=== PATIENT | male | born 1970 | race African-American/Black ===

== ENCOUNTER 2018-05-09 11:35 | Inpatient (IN) | payer MEDICAID ==
[~2018-05-09] VITALS: Ht 188 cm; Wt 88.0 kg
[~2018-05-09 11:35] MED LIST: AMMO1SOL2 MC; ATOR40TA70 MT; GABA-531 MT; INSLIS SUBCUT; INSU100I24 SQ; KETO15CR2 TP; METF-416 MT; SITA100T11 MT; ZET10 MT
[2018-05-09] MEDS ORDERED: ONDANSETRON HCL 4MG/2ML INJ IV STA (12:22)
[2018-05-09] MEDS ORDERED: MORPHINE SULFATE 4 MG/ML CPJ (NOT FOR IM USE) IV STA (12:22)
[2018-05-09] MEDS ORDERED: VANCOMYCIN 1 G PREMIX 200 ML IV ONE (12:30)
[2018-05-09] MEDS ORDERED: SODIUM CHLORIDE 0.9% 1000ML BAG (SEPSIS BOLUS) IV ONE (12:30)
[2018-05-09] MEDS ORDERED: PIPERACILLIN/TAZ 3.375G PREMIX 50 ML IV ONE (12:30)
[2018-05-09 13:19] LABS: BASOPHILS % 0.4 % (0.0-2.0); EOSINOPHILS % 0.9 % (0.0-5.0); HEMATOCRIT. 23.5 % (42.0-52.0); HEMOGLOBIN. 7.5 g/dL (14.0-18.0); LYMPHOCYTES % 7.1 % (20.0-50.0); MEAN CORPUSCULAR HEMOGLOBIN 27.4 pg (28.0-32.0); MEAN CORPUSCULAR VOLUME 85.3 fL (80.0-94.0); MEAN PLATELET VOLUME 8.8 fl (7.4-10.4); MONOCYTES % 10.9 % (2.0-8.0); NEUTROPHILS % 80.7 % (40.0-76.0); PLATELET 422 x1000/uL (130-400); RED BLOOD CELL COUNT 2.75 mill/uL (4.7-6.1); RED CELL DISTRIBUTION WIDTH 18.7 % (11.6-14.6)
[2018-05-09 13:24] LABS: CHLORIDE 105 mEq/L (98-107)
[2018-05-09 13:31] LABS: INR 1.5; PARTIAL THROMBOPLASTIN TIME 33.2 sec (23.4-31.0); PROTHROMBIN TIME 14.6 sec (9.1-11.1)
[2018-05-09 13:33] LABS: PLATELET ESTIMATE SLIGHTLY INCREASED
[2018-05-09] MEDS ORDERED: IOHEXOL-350 100 ML BOTTLE ONE (15:26)
[2018-05-09] MEDS ORDERED: MORPHINE SULFATE 10 MG/ML CPJ IV NR (16:00)
[2018-05-09 16:09] LABS: CLARITY URINE CLEAR (CLEAR); COLOR URINE YELLOW (YELLOW); KETONES URINE NEGATIVE (NEGATIVE); LEUKOCYTE ESTERASE URINE NEGATIVE (NEGATIVE); NITRITE URINE NEGATIVE (NEGATIVE); OCCULT BLOOD URINE 1+ (NEGATIVE); PROTEIN URINE 3+ (NEGATIVE); SPECIFIC GRAVITY URINE 1.019 (1.005-1.030)
[2018-05-09] MEDS ORDERED: ENOXAPARIN 100MG/ML SYR SUBCUT ONE (16:15)
[2018-05-09] MEDS ORDERED: ONDANSETRON HCL 4MG/2ML INJ IV PRN (17:30)
[2018-05-09 18:50] LABS: TOTAL IRON BINDING CAPACITY 224 ug/dL (250-450)
[2018-05-09] MEDS: CLONIDINE 0.1MG TABLET PO PRN (19:24)
[2018-05-09] MEDS ORDERED: AMLODIPINE 5MG TABLET PO NR (19:25)
[2018-05-09 20:10] VITALS: BP 156/105
[2018-05-09 20:15] LABS: *COCAINE SCREEN URINE NEGATIVE (NEGATIVE)
[2018-05-09 20:16] LABS: *AMPHETAMINES SCREEN URINE NEGATIVE (NEGATIVE); *BARBITURATES SCREEN URINE NEGATIVE (NEGATIVE); CANNABINOID URINE SCREEN NEGATIVE (NEGATIVE); METHADONE URINE SCREEN NEGATIVE (NEGATIVE); OPIATES URINE SCREEN NEGATIVE (NEGATIVE); PHENCYCLIDINE URINE SCREEN NEGATIVE (NEGATIVE)
[2018-05-09 20:17] LABS: *BENZODIAZEPINES SCREEN URINE NEGATIVE (NEGATIVE)
[2018-05-09] MEDS: INSULIN LISPRO 100 UNITS/ML SUBCUT SCH (21:00)
[2018-05-09] MEDS ORDERED: DEXTROSE 50% WATER 50ML SYRINGE IV PRN (21:00)
[2018-05-09] MEDS: ATORVASTATIN CALCIUM 20MG TABLET PO SCH (21:27)
[2018-05-09] MEDS: BLOOD SUGAR DIAGNOSTIC STRIP TEST SCH (21:27)
[2018-05-09 21:38] VITALS: BP 156/105
[2018-05-09] MEDS ORDERED: VANCOMYCIN 750 MG PREMIX 150 ML IV SCH (22:00)
[2018-05-09] MEDS: VANCOMYCIN 750 MG PREMIX 150 ML IV SCH (22:50)
[2018-05-10] VITALS (11 sets, daily range): BP systolic 138–173; BP diastolic 89–109
[2018-05-10] MEDS: PIPERACILLIN/TAZ 3.375G PREMIX 50 ML IV SCH ×4 (00:39→17:33)
[2018-05-10] MEDS: CLONIDINE 0.1MG TABLET PO PRN (05:06)
[2018-05-10] MEDS: VANCOMYCIN 750 MG PREMIX 150 ML IV SCH (06:05)
[2018-05-10] MEDS: BLOOD SUGAR DIAGNOSTIC STRIP TEST SCH ×4 (06:05→21:31)
[2018-05-10] MEDS: INSULIN LISPRO 100 UNITS/ML SUBCUT SCH ×4 (06:44→21:31)
[2018-05-10 07:05] LABS: BASOPHILS % 0.4 % (0.0-2.0); EOSINOPHILS % 1.3 % (0.0-5.0); HEMATOCRIT. 21.7 % (42.0-52.0); LYMPHOCYTES % 10.1 % (20.0-50.0); MEAN CORPUSCULAR HEMOGLOBIN 27.4 pg (28.0-32.0); MEAN CORPUSCULAR VOLUME 85.2 fL (80.0-94.0); MEAN PLATELET VOLUME 8.9 fl (7.4-10.4); NEUTROPHILS % 78.2 % (40.0-76.0); PLATELET 394 x1000/uL (130-400); RED BLOOD CELL COUNT 2.55 mill/uL (4.7-6.1); RED CELL DISTRIBUTION WIDTH 18.7 % (11.6-14.6)
[2018-05-10 07:53] LABS: CHLORIDE 105 mEq/L (98-107)
[2018-05-10] MEDS: AMLODIPINE 5MG TABLET PO SCH ×2 (09:20→21:30)
[2018-05-10] MEDS ORDERED: SODIUM CHLORIDE 0.45% 1,000 ML IV SCH (11:15)
[2018-05-10] MEDS: FERROUS SULFATE 325MG TABLET PO SCH ×2 (13:23→17:32)
[2018-05-10] MEDS: LOSARTAN POTASSIUM 100 MG TABLET PO SCH (13:23)
[2018-05-10] MEDS: DOCUSATE SODIUM 250MG CAPSULE PO SCH (13:23)
[2018-05-10 16:34] LABS: HEMATOCRIT 25.3 % (42.0-52.0); HEMOGLOBIN 8.2 g/dL (14.0-18.0)
[2018-05-10] MEDS: VANCOMYCIN 1250MG in DEXTROSE 5% WATER 250ML IV SCH (18:15)
[2018-05-10] MEDS: ATORVASTATIN CALCIUM 20MG TABLET PO SCH (21:30)
[2018-05-11] VITALS: BP 161/97
[2018-05-11] MEDS: PIPERACILLIN/TAZ 3.375G PREMIX 50 ML IV SCH ×4 (00:05→18:21)
[2018-05-11] MEDS: CLONIDINE 0.1MG TABLET PO PRN (00:10)
[2018-05-11] MEDS: HYDROMORPHONE HCL/PF 2MG/ML CPJ IV PRN ×2 (00:39→21:27)
[2018-05-11 04:00] VITALS: BP 116/90
[2018-05-11] MEDS: FERROUS SULFATE 325MG TABLET PO SCH ×2 (06:25→11:53)
[2018-05-11] MEDS: VANCOMYCIN 1250MG in DEXTROSE 5% WATER 250ML IV SCH (06:25)
[2018-05-11] MEDS: BLOOD SUGAR DIAGNOSTIC STRIP TEST SCH ×4 (06:25→21:35)
[2018-05-11] MEDS: INSULIN LISPRO 100 UNITS/ML SUBCUT SCH ×4 (06:25→21:34)
[2018-05-11 07:05] LABS: BASOPHILS % 0.6 % (0.0-2.0); EOSINOPHILS % 3.1 % (0.0-5.0); HEMATOCRIT. 21.8 % (42.0-52.0); HEMOGLOBIN. 7.3 g/dL (14.0-18.0); LYMPHOCYTES % 13.3 % (20.0-50.0); MEAN CORPUSCULAR HEMOGLOBIN 28.6 pg (28.0-32.0); MEAN CORPUSCULAR VOLUME 84.9 fL (80.0-94.0); MEAN PLATELET VOLUME 8.7 fl (7.4-10.4); MONOCYTES % 13.1 % (2.0-8.0); NEUTROPHILS % 69.9 % (40.0-76.0); PLATELET 428 x1000/uL (130-400); RED BLOOD CELL COUNT 2.57 mill/uL (4.7-6.1); RED CELL DISTRIBUTION WIDTH 18.3 % (11.6-14.6)
[2018-05-11 08:00] VITALS: BP 124/88
[2018-05-11] MEDS: DOCUSATE SODIUM 250MG CAPSULE PO SCH (09:39)
[2018-05-11] MEDS: LOSARTAN POTASSIUM 100 MG TABLET PO SCH (09:39)
[2018-05-11] MEDS: AMLODIPINE 5MG TABLET PO SCH ×2 (09:39→21:11)
[2018-05-11 12:00] VITALS: BP 132/90
[2018-05-11] MEDS: HYDROCODONE/ACETAMINOPHEN 5/325MG TABLET PO PRN (14:22)
[2018-05-11 16:00] VITALS: BP 140/91
[2018-05-11 20:00] VITALS: BP 142/91
[2018-05-11] MEDS: ATORVASTATIN CALCIUM 20MG TABLET PO SCH (21:11)
[2018-05-11 23:42] LABS: INR 1.5; PROTHROMBIN TIME 15.1 sec (9.1-11.1)
[2018-05-12] VITALS (7 sets, daily range): BP systolic 130–159; BP diastolic 83–94
[2018-05-12] MEDS: PIPERACILLIN/TAZ 3.375G PREMIX 50 ML IV SCH ×4 (00:38→19:01)
[2018-05-12] MEDS: INSULIN LISPRO 100 UNITS/ML SUBCUT SCH ×4 (07:15→21:00)
[2018-05-12] MEDS: BLOOD SUGAR DIAGNOSTIC STRIP TEST SCH ×4 (07:36→20:55)
[2018-05-12 07:44] LABS: BASOPHILS % 0.4 % (0.0-2.0); EOSINOPHILS % 3.1 % (0.0-5.0); HEMATOCRIT. 22.5 % (42.0-52.0); HEMOGLOBIN. 7.4 g/dL (14.0-18.0); LYMPHOCYTES % 10.3 % (20.0-50.0); MEAN CORPUSCULAR HEMOGLOBIN 27.7 pg (28.0-32.0); MEAN CORPUSCULAR VOLUME 84.4 fL (80.0-94.0); MEAN PLATELET VOLUME 8.8 fl (7.4-10.4); MONOCYTES % 9.7 % (2.0-8.0); NEUTROPHILS % 76.5 % (40.0-76.0); PLATELET 434 x1000/uL (130-400); RED BLOOD CELL COUNT 2.67 mill/uL (4.7-6.1); RED CELL DISTRIBUTION WIDTH 18.5 % (11.6-14.6)
[2018-05-12] MEDS: DOCUSATE SODIUM 250MG CAPSULE PO SCH (09:00)
[2018-05-12] MEDS: AMLODIPINE 5MG TABLET PO SCH ×2 (09:35→20:55)
[2018-05-12] MEDS: HYDROMORPHONE HCL/PF 2MG/ML CPJ IV PRN (09:36)
[2018-05-12] MEDS: HYDRALAZINE HCL 50MG TABLET PO SCH ×2 (15:00→20:55)
[2018-05-12] MEDS: HYDROCODONE/ACETAMINOPHEN 5/325MG TABLET PO PRN (18:40)
[2018-05-12] MEDS: ATORVASTATIN CALCIUM 20MG TABLET PO SCH (20:55)
[2018-05-12 21:37] LABS: HEPATITIS B SURFACE ANTIGEN NEGATIVE
[2018-05-12 22:07] LABS: HEPATITIS A AB IGM NEGATIVE (NEGATIVE)
[2018-05-13] VITALS: BP 147/92
[2018-05-13] MEDS: PIPERACILLIN/TAZ 3.375G PREMIX 50 ML IV SCH ×4 (01:04→18:40)
[2018-05-13] MEDS: HYDROMORPHONE HCL/PF 2MG/ML CPJ IV PRN ×3 (01:52→18:47)
[2018-05-13 04:00] VITALS: BP 153/104
[2018-05-13] MEDS: CLONIDINE 0.1MG TABLET PO PRN (04:08)
[2018-05-13] MEDS: HYDRALAZINE HCL 50MG TABLET PO SCH ×3 (06:27→22:13)
[2018-05-13] MEDS: BLOOD SUGAR DIAGNOSTIC STRIP TEST SCH ×4 (06:27→20:40)
[2018-05-13] MEDS: INSULIN LISPRO 100 UNITS/ML SUBCUT SCH ×4 (06:45→20:40)
[2018-05-13 08:00] VITALS: BP 132/90
[2018-05-13] MEDS: DOCUSATE SODIUM 250MG CAPSULE PO SCH ×2 (09:00→09:09)
[2018-05-13] MEDS: AMLODIPINE 5MG TABLET PO SCH ×2 (09:09→20:49)
[2018-05-13 11:54] LABS: HEMATOCRIT. 22.7 % (42.0-52.0); HEMOGLOBIN. 7.4 g/dL (14.0-18.0); MEAN CORPUSCULAR HEMOGLOBIN 27.9 pg (28.0-32.0); MEAN CORPUSCULAR VOLUME 86.1 fL (80.0-94.0); MEAN PLATELET VOLUME 8.7 fl (7.4-10.4); PLATELET 451 x1000/uL (130-400); RED BLOOD CELL COUNT 2.64 mill/uL (4.7-6.1); RED CELL DISTRIBUTION WIDTH 18.6 % (11.6-14.6)
[2018-05-13 12:00] VITALS: BP 136/85
[2018-05-13 12:15] LABS: PHOSPHORUS 6.2 mg/dL (2.5-4.9)
[2018-05-13 13:39] LABS: BG BASE EXCESS -6.2 mmol/L (-2.0-2.0); BG CARBOXYHEMOGLOBIN 0.9 % (0.5-1.5); BG DEOXYHEMOGLOBIN 3.4 % (0.0-5.0); BG FRACTION INSPIRED OXYGEN 21; BG HCO3 ACT 17.6 mmol/L (22.0-26.0); BG OXYGEN SATURATION 96.6 % (92.0-98.5); BG OXYHEMOGLOBIN 95.7 % (94.0-97.0); BG PCO2 28.1 mmHg (35.0-45.0); BG PH 7.414 (7.350-7.450); BG PO2 94.3 mmHg (75.0-100.0); BG SAMPLE SITE LEFT RADIAL; BG TOTAL HEMOGLOBIN 8.2 g/dL (12.0-18.0); BG VENT MODE ROOM AIR
[2018-05-13] MEDS ORDERED: MAGNESIUM 2 G PREMIX 50 ML IV NR (14:30)
[2018-05-13] MEDS: CITRIC ACID/SODIUM CITRATE SOLN 30ML UDC PO SCH ×2 (14:42→18:39)
[2018-05-13 15:59] LABS: PLATELET ESTIMATE SLIGHTLY INCREASED
[2018-05-13 16:00] VITALS: BP 134/98
[2018-05-13] MEDS ORDERED: PHYTONADIONE 5 MG/5ML ORAL SYRINGE PO NR (18:30)
[2018-05-13 20:00] VITALS: BP 140/91
[2018-05-13] MEDS: ATORVASTATIN CALCIUM 20MG TABLET PO SCH (20:49)
[2018-05-14] VITALS: BP 137/85
[2018-05-14] MEDS: PIPERACILLIN/TAZ 3.375G PREMIX 50 ML IV SCH ×2 (00:13→05:29)
[2018-05-14] MEDS: HYDROMORPHONE HCL/PF 2MG/ML CPJ IV PRN ×3 (01:13→15:43)
[2018-05-14 04:00] VITALS: BP 132/88
[2018-05-14] MEDS: HYDRALAZINE HCL 50MG TABLET PO SCH ×3 (05:30→22:14)
[2018-05-14] MEDS: BLOOD SUGAR DIAGNOSTIC STRIP TEST SCH ×4 (05:52→20:48)
[2018-05-14] MEDS: INSULIN LISPRO 100 UNITS/ML SUBCUT SCH ×4 (05:52→20:48)
[2018-05-14 08:00] VITALS: BP 159/96
[2018-05-14] MEDS: DOCUSATE SODIUM 250MG CAPSULE PO SCH (09:00)
[2018-05-14] MEDS: AMLODIPINE 5MG TABLET PO SCH ×2 (09:15→20:47)
[2018-05-14] MEDS: CITRIC ACID/SODIUM CITRATE SOLN 30ML UDC PO SCH ×4 (09:15→19:00)
[2018-05-14 09:57] LABS: BASOPHILS % 0.5 % (0.0-2.0); HEMATOCRIT. 24.3 % (42.0-52.0); LYMPHOCYTES % 8.5 % (20.0-50.0); MEAN CORPUSCULAR HEMOGLOBIN 27.9 pg (28.0-32.0); MEAN CORPUSCULAR VOLUME 84.7 fL (80.0-94.0); MEAN PLATELET VOLUME 8.6 fl (7.4-10.4); MONOCYTES % 9.2 % (2.0-8.0); NEUTROPHILS % 79.8 % (40.0-76.0); PLATELET 480 x1000/uL (130-400); RED BLOOD CELL COUNT 2.86 mill/uL (4.7-6.1); RED CELL DISTRIBUTION WIDTH 18.9 % (11.6-14.6)
[2018-05-14 12:00] VITALS: BP 147/97
[2018-05-14] MEDS: PIPERACILLIN/TAZ 2.25G PREMIX 50 ML IV SCH ×3 (13:12→23:28)
[2018-05-14 16:00] VITALS: BP 142/93
[2018-05-14 20:00] VITALS: BP 147/94
[2018-05-14] MEDS: ATORVASTATIN CALCIUM 20MG TABLET PO SCH (20:46)
[2018-05-15] VITALS (9 sets, daily range): BP systolic 143–163; BP diastolic 91–108
[2018-05-15] MEDS: HYDROMORPHONE HCL/PF 2MG/ML CPJ IV PRN ×2 (01:31→08:56)
[2018-05-15] MEDS: HYDRALAZINE HCL 50MG TABLET PO SCH ×2 (05:26→13:03)
[2018-05-15] MEDS: PIPERACILLIN/TAZ 2.25G PREMIX 50 ML IV SCH ×3 (05:26→18:43)
[2018-05-15 06:14] LABS: BASOPHILS % 0.9 % (0.0-2.0); EOSINOPHILS % 1.8 % (0.0-5.0); HEMATOCRIT. 22.3 % (42.0-52.0); HEMOGLOBIN. 7.6 g/dL (14.0-18.0); LYMPHOCYTES % 11.7 % (20.0-50.0); MEAN CORPUSCULAR HEMOGLOBIN 28.6 pg (28.0-32.0); MEAN CORPUSCULAR VOLUME 84.7 fL (80.0-94.0); MEAN PLATELET VOLUME 8.7 fl (7.4-10.4); NEUTROPHILS % 74.6 % (40.0-76.0); PLATELET 470 x1000/uL (130-400); RED BLOOD CELL COUNT 2.64 mill/uL (4.7-6.1); RED CELL DISTRIBUTION WIDTH 19.3 % (11.6-14.6)
[2018-05-15] MEDS: BLOOD SUGAR DIAGNOSTIC STRIP TEST SCH ×4 (06:20→21:34)
[2018-05-15] MEDS: INSULIN LISPRO 100 UNITS/ML SUBCUT SCH ×4 (06:21→21:34)
[2018-05-15 07:34] LABS: CHLORIDE 103 mEq/L (98-107)
[2018-05-15 07:46] LABS: PHOSPHORUS 5.8 mg/dL (2.5-4.9)
[2018-05-15] MEDS: AMLODIPINE 5MG TABLET PO SCH ×2 (08:56→21:22)
[2018-05-15] MEDS: CITRIC ACID/SODIUM CITRATE SOLN 30ML UDC PO SCH ×3 (08:56→18:17)
[2018-05-15] MEDS: DOCUSATE SODIUM 250MG CAPSULE PO SCH (08:56)
[2018-05-15] MEDS: HYDROCODONE/ACETAMINOPHEN 5/325MG TABLET PO PRN ×2 (14:53→22:11)
[2018-05-15] MEDS ORDERED: MAGNESIUM 2 G PREMIX 50 ML IV SCH (16:00)
[2018-05-15] MEDS: HYDRALAZINE HCL 100MG TABLET PO SCH (21:22)
[2018-05-15] MEDS: ATORVASTATIN CALCIUM 20MG TABLET PO SCH (21:22)
[2018-05-16] VITALS (12 sets, daily range): BP systolic 144–180; BP diastolic 90–113
[2018-05-16] MEDS: DEXT 5%/0.45% NACL 1000ML 1,000 ML IV SCH ×2 (04:38→15:45)
[2018-05-16] MEDS: HYDRALAZINE HCL 100MG TABLET PO SCH ×3 (06:00→21:11)
[2018-05-16] MEDS: PIPERACILLIN/TAZ 2.25G PREMIX 50 ML IV SCH ×4 (06:09→17:06)
[2018-05-16] MEDS: BLOOD SUGAR DIAGNOSTIC STRIP TEST SCH ×4 (06:20→21:11)
[2018-05-16 06:45] LABS: BASOPHILS % 0.5 % (0.0-2.0); EOSINOPHILS % 2.4 % (0.0-5.0); HEMOGLOBIN. 9.4 g/dL (14.0-18.0); LYMPHOCYTES % 11.1 % (20.0-50.0); MEAN CORPUSCULAR HEMOGLOBIN 28.2 pg (28.0-32.0); MEAN CORPUSCULAR VOLUME 84.5 fL (80.0-94.0); MEAN PLATELET VOLUME 8.7 fl (7.4-10.4); MONOCYTES % 10.4 % (2.0-8.0); NEUTROPHILS % 75.6 % (40.0-76.0); PLATELET 475 x1000/uL (130-400); RED BLOOD CELL COUNT 3.31 mill/uL (4.7-6.1); RED CELL DISTRIBUTION WIDTH 18.6 % (11.6-14.6)
[2018-05-16 06:52] LABS: INR 1.3; PROTHROMBIN TIME 13.4 sec (9.1-11.1)
[2018-05-16] MEDS: MORPHINE SULFATE 4 MG/ML CPJ (NOT FOR IM USE) IV PRN ×4 (06:59→22:16)
[2018-05-16] MEDS: INSULIN LISPRO 100 UNITS/ML SUBCUT SCH ×4 (07:07→21:00)
[2018-05-16 07:10] LABS: PHOSPHORUS 4.7 mg/dL (2.5-4.9)
[2018-05-16] MEDS: HYDRALAZINE 20MG/ML VIAL IV PRN (08:36)
[2018-05-16] MEDS: DOCUSATE SODIUM 250MG CAPSULE PO SCH (08:41)
[2018-05-16] MEDS: CITRIC ACID/SODIUM CITRATE SOLN 30ML UDC PO SCH ×3 (08:41→17:06)
[2018-05-16] MEDS: AMLODIPINE 5MG TABLET PO SCH ×2 (08:42→21:11)
[2018-05-16] MEDS ORDERED: MORPHINE SULFATE 4 MG/ML CPJ (NOT FOR IM USE) IV SCH (10:00)
[2018-05-16] MEDS ORDERED: VANCOMYCIN 1250MG in DEXTROSE 5% WATER 250ML IV NR (12:00)
[2018-05-16] MEDS: ATORVASTATIN CALCIUM 20MG TABLET PO SCH (21:11)
[2018-05-16] MEDS: ACETAMINOPHEN 325MG TABLET PO PRN (23:22)
[2018-05-17] VITALS (21 sets, daily range): BP systolic 126–174; BP diastolic 56–114
[2018-05-17] MEDS: PIPERACILLIN/TAZ 2.25G PREMIX 50 ML IV SCH ×4 (01:23→21:00)
[2018-05-17] MEDS: HYDRALAZINE 20MG/ML VIAL IV PRN ×2 (04:49→14:23)
[2018-05-17] MEDS: HYDRALAZINE HCL 100MG TABLET PO SCH ×3 (05:15→23:10)
[2018-05-17] MEDS: BLOOD SUGAR DIAGNOSTIC STRIP TEST SCH ×4 (06:10→21:17)
[2018-05-17] MEDS: INSULIN LISPRO 100 UNITS/ML SUBCUT SCH ×4 (06:20→21:36)
[2018-05-17 07:12] LABS: HEMATOCRIT. 28.5 % (42.0-52.0); HEMOGLOBIN. 9.3 g/dL (14.0-18.0); MEAN CORPUSCULAR HEMOGLOBIN 27.8 pg (28.0-32.0); MEAN CORPUSCULAR VOLUME 85.7 fL (80.0-94.0); RED BLOOD CELL COUNT 3.33 mill/uL (4.7-6.1); RED CELL DISTRIBUTION WIDTH 19.2 % (11.6-14.6)
[2018-05-17 07:30] LABS: PHOSPHORUS 4.2 mg/dL (2.5-4.9)
[2018-05-17] MEDS: AMLODIPINE 5MG TABLET PO SCH ×2 (09:00→21:36)
[2018-05-17] MEDS: DOCUSATE SODIUM 250MG CAPSULE PO SCH (09:00)
[2018-05-17] MEDS: CITRIC ACID/SODIUM CITRATE SOLN 30ML UDC PO SCH ×3 (09:00→17:00)
[2018-05-17] MEDS: MORPHINE SULFATE 4 MG/ML CPJ (NOT FOR IM USE) IV PRN ×2 (09:27→23:18)
[2018-05-17] MEDS: DEXT 5%/0.45% NACL 1000ML 1,000 ML IV SCH ×3 (09:28→20:49)
[2018-05-17] MEDS ORDERED: MAGNESIUM 2 G PREMIX 50 ML IV NR (10:00)
[2018-05-17 11:09] LABS: PHOSPHORUS 3.9 mg/dL (2.5-4.9)
[2018-05-17] MEDS ORDERED: NORMAL SALINE 0.9% 10 ML SYR ONE (12:02)
[2018-05-17] MEDS ORDERED: VANCOMYCIN HCL 500 MG/VIAL ONE ×2 (12:02→16:23)
[2018-05-17] MEDS ORDERED: BUPIVACAINE HCL 0.5% (5MG/ML) 50ML ONE (12:02)
[2018-05-17] MEDS ORDERED: BACITRACIN 50,000 UNITS/VIAL ONE (12:02)
[2018-05-17] MEDS ORDERED: BACITRACIN 15GM TUBE TOP ONE (12:02)
[2018-05-17 12:19] LABS: MEAN PLATELET VOLUME 8.7 fl (7.4-10.4); PLATELET 449 x1000/uL (130-400); PLATELET ESTIMATE INCREASED
[2018-05-17] MEDS ORDERED: PROPOFOL 200MG/20ML VIAL IV ONE ×2 (16:02→17:44)
[2018-05-17] MEDS ORDERED: FENTANYL CITRATE/PF 50MCG/ML 2ML VIAL ONE (16:02)
[2018-05-17] MEDS ORDERED: MIDAZOLAM HCL 2 MG/2 ML VIAL ONE (16:02)
[2018-05-17] MEDS ORDERED: DEXAMETHASONE 4MG/ML 1ML VIAL ONE (16:16)
[2018-05-17] MEDS ORDERED: ONDANSETRON HCL 4MG/2ML INJ ONE (16:16)
[2018-05-17] MEDS ORDERED: ALBUMIN HUMAN 12.5G/250ML (5%) IV ONE (17:11)
[2018-05-17] MEDS ORDERED: PIPERACILLIN/TAZ 3.375G PREMIX 50 ML IV SCH (18:00)
[2018-05-17] MEDS ORDERED: LIDOCAINE HCL 1% 20ML VIAL (Pyxis) INJ ONE (18:12)
[2018-05-17] MEDS ORDERED: ETOMIDATE 2MG/ML 10ML VIAL IV ONE (18:12)
[2018-05-17] MEDS ORDERED: LABETALOL HCL 20MG/4ML CARPUJECT IV PRN (18:30)
[2018-05-17] MEDS ORDERED: ONDANSETRON HCL 4MG/2ML INJ IV PRN (18:30)
[2018-05-17] MEDS ORDERED: MEPERIDINE HCL/PF 25MG/ML CPJ IV PRN (18:30)
[2018-05-17] MEDS: HYDROMORPHONE HCL/PF 2MG/ML CPJ IV PRN ×5 (18:35→20:15)
[2018-05-17] MEDS: PIPERACILLIN/TAZ 3.375G PREMIX 50 ML IV SCH (21:00)
[2018-05-17] MEDS: ATORVASTATIN CALCIUM 20MG TABLET PO SCH (21:36)
[2018-05-17 21:54] LABS: D-DIMER 1.67 mg/L FEU (<0.50); INR 1.4; PARTIAL THROMBOPLASTIN TIME 32.9 sec (23.4-31.0)
[2018-05-17 21:59] LABS: HEMATOCRIT. 28.1 % (42.0-52.0); HEMOGLOBIN. 9.2 g/dL (14.0-18.0); MEAN CORPUSCULAR HEMOGLOBIN 28.3 pg (28.0-32.0); MEAN CORPUSCULAR VOLUME 86.6 fL (80.0-94.0); MEAN PLATELET VOLUME 8.8 fl (7.4-10.4); PLATELET 283 x1000/uL (130-400); RED BLOOD CELL COUNT 3.25 mill/uL (4.7-6.1); RED CELL DISTRIBUTION WIDTH 17.9 % (11.6-14.6)
[2018-05-17 22:23] LABS: PLATELET ESTIMATE NORMAL
[2018-05-18] VITALS (20 sets, daily range): BP systolic 113–167; BP diastolic 70–109
[2018-05-18] MEDS: PIPERACILLIN/TAZ 3.375G PREMIX 50 ML IV SCH ×4 (03:00→21:37)
[2018-05-18] MEDS: PIPERACILLIN/TAZ 2.25G PREMIX 50 ML IV SCH (03:00)
[2018-05-18] MEDS: MORPHINE SULFATE 4 MG/ML CPJ (NOT FOR IM USE) IV PRN ×4 (03:01→21:49)
[2018-05-18 05:33] LABS: HEMATOCRIT. 25.7 % (42.0-52.0); HEMOGLOBIN. 8.4 g/dL (14.0-18.0); MEAN CORPUSCULAR HEMOGLOBIN 28.2 pg (28.0-32.0); MEAN CORPUSCULAR VOLUME 85.9 fL (80.0-94.0); MEAN PLATELET VOLUME 8.7 fl (7.4-10.4); PLATELET 260 x1000/uL (130-400); RED BLOOD CELL COUNT 2.99 mill/uL (4.7-6.1); RED CELL DISTRIBUTION WIDTH 18.1 % (11.6-14.6)
[2018-05-18 05:45] LABS: PHOSPHORUS 4.7 mg/dL (2.5-4.9)
[2018-05-18] MEDS: HYDRALAZINE HCL 100MG TABLET PO SCH ×3 (07:45→21:35)
[2018-05-18] MEDS: BLOOD SUGAR DIAGNOSTIC STRIP TEST SCH ×4 (07:50→21:40)
[2018-05-18] MEDS ORDERED: MAGNESIUM 2 G PREMIX 50 ML IV NR (09:00)
[2018-05-18] MEDS: CITRIC ACID/SODIUM CITRATE SOLN 30ML UDC PO SCH ×3 (09:03→17:32)
[2018-05-18] MEDS: DOCUSATE SODIUM 250MG CAPSULE PO SCH (09:03)
[2018-05-18] MEDS: AMLODIPINE 5MG TABLET PO SCH ×2 (09:03→21:36)
[2018-05-18] MEDS: INSULIN LISPRO 100 UNITS/ML SUBCUT SCH ×4 (09:03→21:39)
[2018-05-18 09:47] LABS: PLATELET ESTIMATE NORMAL
[2018-05-18] MEDS: HYDROCODONE/ACETAMINOPHEN 5/325MG TABLET PO PRN (09:58)
[2018-05-18] MEDS: VANCOMYCIN 1 G PREMIX 200 ML IV SCH (11:43)
[2018-05-18] MEDS: ATORVASTATIN CALCIUM 20MG TABLET PO SCH (21:38)
[2018-05-19] VITALS (11 sets, daily range): BP systolic 120–144; BP diastolic 75–94
[2018-05-19] MEDS: MORPHINE SULFATE 4 MG/ML CPJ (NOT FOR IM USE) IV PRN ×4 (01:23→21:11)
[2018-05-19] MEDS: PIPERACILLIN/TAZ 3.375G PREMIX 50 ML IV SCH ×4 (03:11→20:47)
[2018-05-19] MEDS: HYDRALAZINE HCL 100MG TABLET PO SCH ×4 (06:25→21:52)
[2018-05-19] MEDS: VANCOMYCIN 1 G PREMIX 200 ML IV SCH (06:26)
[2018-05-19] MEDS: BLOOD SUGAR DIAGNOSTIC STRIP TEST SCH ×4 (06:47→21:15)
[2018-05-19 06:50] LABS: MEAN CORPUSCULAR HEMOGLOBIN 28.6 pg (28.0-32.0); MEAN CORPUSCULAR VOLUME 85.6 fL (80.0-94.0); MEAN PLATELET VOLUME 8.5 fl (7.4-10.4); PLATELET 259 x1000/uL (130-400); RED BLOOD CELL COUNT 2.39 mill/uL (4.7-6.1); RED CELL DISTRIBUTION WIDTH 18.5 % (11.6-14.6)
[2018-05-19 07:42] LABS: HEMATOCRIT. 20.5 % (42.0-52.0); HEMOGLOBIN. 6.8 g/dL (14.0-18.0)
[2018-05-19] MEDS: DOCUSATE SODIUM 250MG CAPSULE PO SCH (09:00)
[2018-05-19] MEDS: CITRIC ACID/SODIUM CITRATE SOLN 30ML UDC PO SCH (09:12)
[2018-05-19] MEDS: AMLODIPINE 5MG TABLET PO SCH ×2 (09:13→20:47)
[2018-05-19] MEDS: INSULIN LISPRO 100 UNITS/ML SUBCUT SCH ×4 (09:13→22:02)
[2018-05-19] MEDS: HYDROCODONE/ACETAMINOPHEN 5/325MG TABLET PO PRN ×2 (09:14→19:46)
[2018-05-19] MEDS ORDERED: POTASSIUM CHLORIDE 20MEQ TABLET SR PO SCH (11:00)
[2018-05-19] MEDS ORDERED: MAGNESIUM 2 G PREMIX 50 ML IV SCH (12:30)
[2018-05-19 12:31] LABS: PLATELET ESTIMATE NORMAL
[2018-05-19] MEDS: ATORVASTATIN CALCIUM 20MG TABLET PO SCH (20:47)
[2018-05-19 21:03] LABS: HEMATOCRIT 23.5 % (42.0-52.0); HEMOGLOBIN 7.8 g/dL (14.0-18.0)
[2018-05-19 21:18] LABS: INR 1.3; PROTHROMBIN TIME 12.7 sec (9.1-11.1)
[2018-05-20] VITALS (7 sets, daily range): BP systolic 133–150; BP diastolic 86–98
[2018-05-20] MEDS ORDERED: VANCOMYCIN 1250MG in DEXTROSE 5% WATER 250ML IV SCH ×2
[2018-05-20] MEDS: PIPERACILLIN/TAZ 3.375G PREMIX 50 ML IV SCH ×2 (03:58→08:57)
[2018-05-20] MEDS: MORPHINE SULFATE 4 MG/ML CPJ (NOT FOR IM USE) IV PRN ×5 (03:58→21:41)
[2018-05-20] MEDS: HYDRALAZINE HCL 100MG TABLET PO SCH ×3 (06:32→21:02)
[2018-05-20] MEDS: BLOOD SUGAR DIAGNOSTIC STRIP TEST SCH ×4 (06:38→21:04)
[2018-05-20 07:00] LABS: BASOPHILS % 0.7 % (0.0-2.0); EOSINOPHILS % 2.8 % (0.0-5.0); HEMATOCRIT. 21.5 % (42.0-52.0); HEMOGLOBIN. 7.2 g/dL (14.0-18.0); LYMPHOCYTES % 14.9 % (20.0-50.0); MEAN CORPUSCULAR HEMOGLOBIN 28.5 pg (28.0-32.0); MEAN CORPUSCULAR VOLUME 85.5 fL (80.0-94.0); MEAN PLATELET VOLUME 8.7 fl (7.4-10.4); MONOCYTES % 11.4 % (2.0-8.0); NEUTROPHILS % 70.2 % (40.0-76.0); PLATELET 286 x1000/uL (130-400); RED BLOOD CELL COUNT 2.52 mill/uL (4.7-6.1)
[2018-05-20 07:05] LABS: CHLORIDE 103 mEq/L (98-107)
[2018-05-20 07:25] LABS: PHOSPHORUS 3.4 mg/dL (2.5-4.9)
[2018-05-20] MEDS: DOCUSATE SODIUM 250MG CAPSULE PO SCH (08:46)
[2018-05-20] MEDS: AMLODIPINE 5MG TABLET PO SCH (08:46)
[2018-05-20] MEDS: HYDROCODONE/ACETAMINOPHEN 5/325MG TABLET PO PRN ×2 (11:50→23:25)
[2018-05-20] MEDS: INSULIN LISPRO 100 UNITS/ML SUBCUT SCH ×4 (13:30→21:00)
[2018-05-20] MEDS: AMLODIPINE 10MG TABLET PO SCH (20:46)
[2018-05-20] MEDS: ATORVASTATIN CALCIUM 20MG TABLET PO SCH (20:46)
[2018-05-21] VITALS (9 sets, daily range): BP systolic 133–167; BP diastolic 80–98
[2018-05-21] MEDS: MORPHINE SULFATE 4 MG/ML CPJ (NOT FOR IM USE) IV PRN ×3 (00:43→18:31)
[2018-05-21] MEDS: CLONIDINE 0.1MG TABLET PO PRN (02:19)
[2018-05-21 06:09] LABS: BASOPHILS % 0.7 % (0.0-2.0); EOSINOPHILS % 2.6 % (0.0-5.0); HEMATOCRIT. 24.8 % (42.0-52.0); HEMOGLOBIN. 8.3 g/dL (14.0-18.0); LYMPHOCYTES % 16.2 % (20.0-50.0); MEAN CORPUSCULAR HEMOGLOBIN 28.3 pg (28.0-32.0); MONOCYTES % 10.2 % (2.0-8.0); NEUTROPHILS % 70.3 % (40.0-76.0); PLATELET 302 x1000/uL (130-400); RED BLOOD CELL COUNT 2.92 mill/uL (4.7-6.1); RED CELL DISTRIBUTION WIDTH 19.2 % (11.6-14.6)
[2018-05-21] MEDS: HYDRALAZINE HCL 100MG TABLET PO SCH ×3 (06:50→21:10)
[2018-05-21] MEDS: BLOOD SUGAR DIAGNOSTIC STRIP TEST SCH ×4 (06:52→21:52)
[2018-05-21] MEDS: INSULIN LISPRO 100 UNITS/ML SUBCUT SCH ×4 (07:50→21:26)
[2018-05-21 08:25] LABS: CHLORIDE 105 mEq/L (98-107)
[2018-05-21 08:31] LABS: PHOSPHORUS 3.5 mg/dL (2.5-4.9)
[2018-05-21] MEDS: DOCUSATE SODIUM 250MG CAPSULE PO SCH (08:42)
[2018-05-21] MEDS: AMLODIPINE 10MG TABLET PO SCH ×2 (08:48→21:08)
[2018-05-21] MEDS ORDERED: VANCOMYCIN 1250MG in DEXTROSE 5% WATER 250ML IV SCH (09:00)
[2018-05-21] MEDS ORDERED: HYDRALAZINE 10 MG in SODIUM CHLORIDE 0.9% 49.5 ML IV PRN (10:45)
[2018-05-21] MEDS ORDERED: MAGNESIUM 2 G PREMIX 50 ML IV NR (11:30)
[2018-05-21] MEDS: HYDROCODONE/ACETAMINOPHEN 5/325MG TABLET PO PRN ×2 (12:00→21:12)
[2018-05-21] MEDS: ATORVASTATIN CALCIUM 20MG TABLET PO SCH (21:10)
[2018-05-22] VITALS: BP 138/78
[2018-05-22] MEDS: MORPHINE SULFATE 4 MG/ML CPJ (NOT FOR IM USE) IV PRN ×5 (00:40→22:12)
[2018-05-22] MEDS: HYDROCODONE/ACETAMINOPHEN 5/325MG TABLET PO PRN ×3 (03:25→19:50)
[2018-05-22 04:00] VITALS: BP 161/88
[2018-05-22] MEDS: HYDRALAZINE HCL 100MG TABLET PO SCH ×3 (06:17→21:58)
[2018-05-22] MEDS: BLOOD SUGAR DIAGNOSTIC STRIP TEST SCH ×4 (06:33→21:59)
[2018-05-22 07:17] LABS: BASOPHILS % 1.1 % (0.0-2.0); EOSINOPHILS % 2.7 % (0.0-5.0); HEMATOCRIT. 26.4 % (42.0-52.0); HEMOGLOBIN. 8.8 g/dL (14.0-18.0); LYMPHOCYTES % 14.4 % (20.0-50.0); MEAN CORPUSCULAR HEMOGLOBIN 28.3 pg (28.0-32.0); MEAN CORPUSCULAR VOLUME 85.3 fL (80.0-94.0); MEAN PLATELET VOLUME 8.9 fl (7.4-10.4); MONOCYTES % 8.8 % (2.0-8.0); PLATELET 340 x1000/uL (130-400); RED CELL DISTRIBUTION WIDTH 19.5 % (11.6-14.6)
[2018-05-22] MEDS: INSULIN LISPRO 100 UNITS/ML SUBCUT SCH ×4 (07:50→21:00)
[2018-05-22 08:00] VITALS: BP 137/91
[2018-05-22 08:13] LABS: CHLORIDE 103 mEq/L (98-107)
[2018-05-22 08:30] LABS: PHOSPHORUS 3.6 mg/dL (2.5-4.9)
[2018-05-22] MEDS: AMLODIPINE 10MG TABLET PO SCH ×2 (08:44→21:59)
[2018-05-22] MEDS: DOCUSATE SODIUM 250MG CAPSULE PO SCH (08:44)
[2018-05-22 12:00] VITALS: BP 135/84
[2018-05-22 16:00] VITALS: BP 130/89
[2018-05-22 20:00] VITALS: BP 160/95
[2018-05-22] MEDS: ATORVASTATIN CALCIUM 20MG TABLET PO SCH (21:58)
[2018-05-23] VITALS (7 sets, daily range): BP systolic 137–154; BP diastolic 85–94
[2018-05-23] MEDS: MORPHINE SULFATE 4 MG/ML CPJ (NOT FOR IM USE) IV PRN ×5 (02:39→21:13)
[2018-05-23] MEDS: CLONIDINE 0.1MG TABLET PO PRN (02:43)
[2018-05-23] MEDS: HYDROCODONE/ACETAMINOPHEN 5/325MG TABLET PO PRN (05:14)
[2018-05-23] MEDS: BLOOD SUGAR DIAGNOSTIC STRIP TEST SCH ×4 (06:30→21:25)
[2018-05-23] MEDS: HYDRALAZINE HCL 100MG TABLET PO SCH ×2 (06:32→13:48)
[2018-05-23] MEDS: INSULIN LISPRO 100 UNITS/ML SUBCUT SCH ×4 (07:43→21:00)
[2018-05-23 07:56] LABS: CHLORIDE 100 mEq/L (98-107); HEMATOCRIT. 24.5 % (42.0-52.0); MEAN CORPUSCULAR HEMOGLOBIN 27.9 pg (28.0-32.0); MEAN PLATELET VOLUME 9.3 fl (7.4-10.4); PLATELET 370 x1000/uL (130-400); RED BLOOD CELL COUNT 2.85 mill/uL (4.7-6.1)
[2018-05-23] MEDS: AMLODIPINE 10MG TABLET PO SCH ×2 (08:00→21:12)
[2018-05-23] MEDS: DOCUSATE SODIUM 250MG CAPSULE PO SCH (08:00)
[2018-05-23 08:16] LABS: PHOSPHORUS 3.2 mg/dL (2.5-4.9)
[2018-05-23] MEDS ORDERED: MAGNESIUM 1 G PREMIX 100 ML IV SCH (13:00)
[2018-05-23 15:54] LABS: PLATELET ESTIMATE NORMAL
[2018-05-23] MEDS: METOPROLOL TARTRATE 25MG TABLET PO SCH ×2 (18:03→21:12)
[2018-05-23] MEDS: ATORVASTATIN CALCIUM 20MG TABLET PO SCH (21:12)
[2018-05-24] VITALS: BP 133/87
[2018-05-24] MEDS: HYDRALAZINE HCL 100MG TABLET PO SCH ×4 (02:30→22:26)
[2018-05-24] MEDS: MORPHINE SULFATE 4 MG/ML CPJ (NOT FOR IM USE) IV PRN ×5 (02:42→22:27)
[2018-05-24 04:00] VITALS: BP 145/88
[2018-05-24] MEDS: ACETAMINOPHEN 325MG TABLET PO PRN (06:35)
[2018-05-24] MEDS: BLOOD SUGAR DIAGNOSTIC STRIP TEST SCH ×4 (06:52→21:37)
[2018-05-24] MEDS: INSULIN LISPRO 100 UNITS/ML SUBCUT SCH ×4 (06:52→21:00)
[2018-05-24 08:00] VITALS: BP 119/79
[2018-05-24] MEDS: AMLODIPINE 10MG TABLET PO SCH ×2 (10:01→21:37)
[2018-05-24] MEDS: DOCUSATE SODIUM 250MG CAPSULE PO SCH (10:01)
[2018-05-24] MEDS: METOPROLOL TARTRATE 25MG TABLET PO SCH ×2 (10:02→21:37)
[2018-05-24 10:25] LABS: BASOPHILS % 0.8 % (0.0-2.0); EOSINOPHILS % 0.4 % (0.0-5.0); HEMATOCRIT. 23.1 % (42.0-52.0); HEMOGLOBIN. 7.7 g/dL (14.0-18.0); MEAN CORPUSCULAR HEMOGLOBIN 28.2 pg (28.0-32.0); MEAN CORPUSCULAR VOLUME 84.9 fL (80.0-94.0); MEAN PLATELET VOLUME 8.7 fl (7.4-10.4); MONOCYTES % 12.8 % (2.0-8.0); PLATELET 382 x1000/uL (130-400); RED BLOOD CELL COUNT 2.73 mill/uL (4.7-6.1); RED CELL DISTRIBUTION WIDTH 18.7 % (11.6-14.6)
[2018-05-24 10:35] LABS: CHLORIDE 100 mEq/L (98-107)
[2018-05-24 10:45] LABS: PHOSPHORUS 3.3 mg/dL (2.5-4.9)
[2018-05-24 12:27] VITALS: BP 131/81
[2018-05-24] MEDS ORDERED: MAGNESIUM 2 G PREMIX 50 ML IV SCH (14:00)
[2018-05-24] MEDS: HYDROCODONE/ACETAMINOPHEN 5/325MG TABLET PO PRN (15:00)
[2018-05-24 16:00] VITALS: BP 122/78
[2018-05-24 20:00] VITALS: BP 130/83
[2018-05-24] MEDS: ATORVASTATIN CALCIUM 20MG TABLET PO SCH (21:37)
[2018-05-25] VITALS: BP 134/84
[2018-05-25] MEDS: ACETAMINOPHEN 325MG TABLET PO PRN (01:03)
[2018-05-25] MEDS: MORPHINE SULFATE 4 MG/ML CPJ (NOT FOR IM USE) IV PRN ×4 (03:19→22:20)
[2018-05-25 04:00] VITALS: BP 120/80
[2018-05-25] MEDS: HYDRALAZINE HCL 100MG TABLET PO SCH ×3 (06:15→22:21)
[2018-05-25] MEDS: HYDROCODONE/ACETAMINOPHEN 5/325MG TABLET PO PRN ×2 (06:16→14:56)
[2018-05-25] MEDS: BLOOD SUGAR DIAGNOSTIC STRIP TEST SCH ×4 (06:32→21:11)
[2018-05-25] MEDS: INSULIN LISPRO 100 UNITS/ML SUBCUT SCH ×4 (06:57→21:00)
[2018-05-25] MEDS: DOCUSATE SODIUM 250MG CAPSULE PO SCH (09:44)
[2018-05-25] MEDS: AMLODIPINE 10MG TABLET PO SCH ×2 (09:44→20:32)
[2018-05-25] MEDS: METOPROLOL TARTRATE 25MG TABLET PO SCH ×2 (09:45→20:32)
[2018-05-25 12:00] VITALS: BP 137/80
[2018-05-25 16:00] VITALS: BP 125/74
[2018-05-25 20:00] VITALS: BP 134/83
[2018-05-25] MEDS: ATORVASTATIN CALCIUM 20MG TABLET PO SCH (20:32)
[2018-05-26] VITALS: BP 125/72
[2018-05-26] MEDS: MORPHINE SULFATE 4 MG/ML CPJ (NOT FOR IM USE) IV PRN ×4 (01:34→20:54)
[2018-05-26 04:00] VITALS: BP 137/85
[2018-05-26] MEDS: HYDRALAZINE HCL 100MG TABLET PO SCH ×3 (05:57→21:52)
[2018-05-26] MEDS: BLOOD SUGAR DIAGNOSTIC STRIP TEST SCH ×4 (07:08→21:35)
[2018-05-26] MEDS: INSULIN LISPRO 100 UNITS/ML SUBCUT SCH ×4 (07:50→21:00)
[2018-05-26 08:00] VITALS: BP 142/79
[2018-05-26] MEDS: METOPROLOL TARTRATE 25MG TABLET PO SCH ×2 (09:00→20:55)
[2018-05-26] MEDS: DOCUSATE SODIUM 250MG CAPSULE PO SCH (09:00)
[2018-05-26] MEDS: AMLODIPINE 10MG TABLET PO SCH ×2 (09:00→20:55)
[2018-05-26 12:00] VITALS: BP 151/86
[2018-05-26 16:00] VITALS: BP 136/85
[2018-05-26 16:23] LABS: BASOPHILS % 0.3 % (0.0-2.0); EOSINOPHILS % 0.5 % (0.0-5.0); HEMATOCRIT. 22.7 % (42.0-52.0); HEMOGLOBIN. 7.4 g/dL (14.0-18.0); LYMPHOCYTES % 7.2 % (20.0-50.0); MEAN CORPUSCULAR HEMOGLOBIN 27.9 pg (28.0-32.0); MEAN CORPUSCULAR VOLUME 85.2 fL (80.0-94.0); MEAN PLATELET VOLUME 9.1 fl (7.4-10.4); MONOCYTES % 11.3 % (2.0-8.0); NEUTROPHILS % 80.7 % (40.0-76.0); PLATELET 440 x1000/uL (130-400); RED BLOOD CELL COUNT 2.67 mill/uL (4.7-6.1); RED CELL DISTRIBUTION WIDTH 18.3 % (11.6-14.6)
[2018-05-26] MEDS: HYDROCODONE/ACETAMINOPHEN 5/325MG TABLET PO PRN (16:23)
[2018-05-26 20:00] VITALS: BP 142/86
[2018-05-26] MEDS: CEFAZOLIN 2,000 MG in DEXT 5% WATER 100 ML IV SCH (20:54)
[2018-05-26] MEDS: ATORVASTATIN CALCIUM 20MG TABLET PO SCH (20:55)
[2018-05-26] MEDS: ACETAMINOPHEN 325MG TABLET PO PRN (21:47)
[2018-05-27] VITALS: BP 126/86
[2018-05-27] MEDS: MORPHINE SULFATE 4 MG/ML CPJ (NOT FOR IM USE) IV PRN ×5 (00:55→20:59)
[2018-05-27 04:00] VITALS: BP 136/84
[2018-05-27] MEDS: CEFAZOLIN 2,000 MG in DEXT 5% WATER 100 ML IV SCH ×2 (05:03→12:24)
[2018-05-27] MEDS: HYDRALAZINE HCL 100MG TABLET PO SCH ×3 (05:03→22:46)
[2018-05-27] MEDS: BLOOD SUGAR DIAGNOSTIC STRIP TEST SCH ×4 (06:44→21:00)
[2018-05-27 07:21] LABS: BASOPHILS % 0.4 % (0.0-2.0); HEMATOCRIT. 23.1 % (42.0-52.0); HEMOGLOBIN. 7.5 g/dL (14.0-18.0); LYMPHOCYTES % 8.2 % (20.0-50.0); MEAN CORPUSCULAR HEMOGLOBIN 27.5 pg (28.0-32.0); MEAN CORPUSCULAR VOLUME 84.9 fL (80.0-94.0); MEAN PLATELET VOLUME 9.5 fl (7.4-10.4); MONOCYTES % 10.9 % (2.0-8.0); NEUTROPHILS % 79.5 % (40.0-76.0); PLATELET 469 x1000/uL (130-400); RED BLOOD CELL COUNT 2.72 mill/uL (4.7-6.1); RED CELL DISTRIBUTION WIDTH 18.6 % (11.6-14.6)
[2018-05-27 07:34] LABS: CHLORIDE 99 mEq/L (98-107)
[2018-05-27 07:41] VITALS: BP 136/81
[2018-05-27] MEDS: DOCUSATE SODIUM 250MG CAPSULE PO SCH (09:25)
[2018-05-27] MEDS: AMLODIPINE 10MG TABLET PO SCH ×2 (09:25→20:58)
[2018-05-27] MEDS: METOPROLOL TARTRATE 25MG TABLET PO SCH ×2 (09:26→20:58)
[2018-05-27] MEDS: INSULIN LISPRO 100 UNITS/ML SUBCUT SCH ×4 (09:37→21:00)
[2018-05-27 12:00] VITALS: BP 136/82
[2018-05-27] MEDS: ACETAMINOPHEN 325MG TABLET PO PRN (12:23)
[2018-05-27] MEDS: HYDROCODONE/ACETAMINOPHEN 5/325MG TABLET PO PRN (12:24)
[2018-05-27 16:00] VITALS: BP 128/94
[2018-05-27 20:00] VITALS: BP 141/89
[2018-05-27] MEDS: ATORVASTATIN CALCIUM 20MG TABLET PO SCH (20:57)
[2018-05-28] VITALS: BP 150/89
[2018-05-28] MEDS: CEFAZOLIN 2,000 MG in DEXT 5% WATER 100 ML IV SCH ×4 (00:27→21:52)
[2018-05-28] MEDS: MORPHINE SULFATE 4 MG/ML CPJ (NOT FOR IM USE) IV PRN ×5 (01:32→23:46)
[2018-05-28 04:00] VITALS: BP 140/82
[2018-05-28] MEDS: HYDRALAZINE HCL 100MG TABLET PO SCH ×3 (06:00→21:52)
[2018-05-28] MEDS: INSULIN LISPRO 100 UNITS/ML SUBCUT SCH ×4 (07:50→21:00)
[2018-05-28 08:00] VITALS: BP 140/83
[2018-05-28] MEDS: BLOOD SUGAR DIAGNOSTIC STRIP TEST SCH ×4 (08:14→21:00)
[2018-05-28] MEDS: HYDROCODONE/ACETAMINOPHEN 5/325MG TABLET PO PRN ×2 (09:53→20:53)
[2018-05-28] MEDS: DOCUSATE SODIUM 250MG CAPSULE PO SCH (10:39)
[2018-05-28] MEDS: METOPROLOL TARTRATE 25MG TABLET PO SCH ×2 (10:39→20:52)
[2018-05-28] MEDS: AMLODIPINE 10MG TABLET PO SCH ×2 (10:39→20:52)
[2018-05-28 11:53] LABS: BASOPHILS % 0.6 % (0.0-2.0); EOSINOPHILS % 1.1 % (0.0-5.0); HEMATOCRIT. 23.9 % (42.0-52.0); HEMOGLOBIN. 7.7 g/dL (14.0-18.0); LYMPHOCYTES % 7.3 % (20.0-50.0); MEAN CORPUSCULAR HEMOGLOBIN 27.5 pg (28.0-32.0); MEAN CORPUSCULAR VOLUME 85.5 fL (80.0-94.0); MEAN PLATELET VOLUME 9.2 fl (7.4-10.4); MONOCYTES % 9.6 % (2.0-8.0); NEUTROPHILS % 81.4 % (40.0-76.0); PLATELET 485 x1000/uL (130-400); RED CELL DISTRIBUTION WIDTH 18.5 % (11.6-14.6)
[2018-05-28 12:00] VITALS: BP 144/84
[2018-05-28 12:10] LABS: CHLORIDE 101 mEq/L (98-107)
[2018-05-28] MEDS ORDERED: POTASSIUM CHLORIDE 20MEQ TABLET SR PO SCH (14:00)
[2018-05-28 16:00] VITALS: BP 147/78
[2018-05-28 20:00] VITALS: BP 145/86
[2018-05-28] MEDS: ATORVASTATIN CALCIUM 20MG TABLET PO SCH (20:53)
[2018-05-29] VITALS: BP 137/78
[2018-05-29 04:00] VITALS: BP 139/83
[2018-05-29] MEDS: CEFAZOLIN 2,000 MG in DEXT 5% WATER 100 ML IV SCH ×3 (06:40→23:37)
[2018-05-29] MEDS: HYDRALAZINE HCL 100MG TABLET PO SCH ×3 (06:40→22:16)
[2018-05-29] MEDS: MORPHINE SULFATE 4 MG/ML CPJ (NOT FOR IM USE) IV PRN (06:41)
[2018-05-29] MEDS: BLOOD SUGAR DIAGNOSTIC STRIP TEST SCH ×4 (07:20→21:00)
[2018-05-29] MEDS: INSULIN LISPRO 100 UNITS/ML SUBCUT SCH ×4 (07:50→21:00)
[2018-05-29 08:00] VITALS: BP 150/80
[2018-05-29] MEDS: METOPROLOL TARTRATE 25MG TABLET PO SCH ×2 (09:18→22:16)
[2018-05-29] MEDS: HYDROCODONE/ACETAMINOPHEN 10/325MG TABLET PO PRN ×3 (09:19→23:36)
[2018-05-29] MEDS: AMLODIPINE 10MG TABLET PO SCH ×2 (09:19→22:23)
[2018-05-29] MEDS: DOCUSATE SODIUM 250MG CAPSULE PO SCH (09:19)
[2018-05-29 12:00] VITALS: BP 133/81
[2018-05-29] MEDS: HYDROMORPHONE HCL/PF 2MG/ML CPJ IV PRN (14:46)
[2018-05-29 16:00] VITALS: BP 165/94
[2018-05-29 20:00] VITALS: BP 127/79
[2018-05-29] MEDS: ATORVASTATIN CALCIUM 20MG TABLET PO SCH (22:17)
[2018-05-30] VITALS: BP 138/80
[2018-05-30 04:00] VITALS: BP 142/82
[2018-05-30] MEDS: HYDROCODONE/ACETAMINOPHEN 10/325MG TABLET PO PRN ×2 (05:38→17:42)
[2018-05-30] MEDS: HYDRALAZINE HCL 100MG TABLET PO SCH ×3 (05:41→22:18)
[2018-05-30 05:55] LABS: CHLORIDE 100 mEq/L (98-107)
[2018-05-30] MEDS: CEFAZOLIN 2,000 MG in DEXT 5% WATER 100 ML IV SCH ×3 (06:03→22:18)
[2018-05-30] MEDS: BLOOD SUGAR DIAGNOSTIC STRIP TEST SCH ×4 (07:20→21:00)
[2018-05-30] MEDS: INSULIN LISPRO 100 UNITS/ML SUBCUT SCH ×4 (07:50→21:00)
[2018-05-30 08:00] VITALS: BP 133/79
[2018-05-30] MEDS: DOCUSATE SODIUM 250MG CAPSULE PO SCH (09:35)
[2018-05-30] MEDS: METOPROLOL TARTRATE 25MG TABLET PO SCH ×2 (09:35→20:44)
[2018-05-30] MEDS: AMLODIPINE 10MG TABLET PO SCH ×2 (09:35→20:44)
[2018-05-30] MEDS: HYDROMORPHONE HCL/PF 2MG/ML CPJ IV PRN ×2 (11:26→20:51)
[2018-05-30 12:00] VITALS: BP 133/82
[2018-05-30 16:00] VITALS: BP 137/83
[2018-05-30 16:52] LABS: BASOPHILS % 0.7 % (0.0-2.0); EOSINOPHILS % 2.2 % (0.0-5.0); HEMOGLOBIN. 8.2 g/dL (14.0-18.0); LYMPHOCYTES % 8.6 % (20.0-50.0); MEAN CORPUSCULAR HEMOGLOBIN 27.7 pg (28.0-32.0); MEAN CORPUSCULAR VOLUME 84.8 fL (80.0-94.0); MEAN PLATELET VOLUME 8.9 fl (7.4-10.4); MONOCYTES % 10.2 % (2.0-8.0); NEUTROPHILS % 78.3 % (40.0-76.0); PLATELET 550 x1000/uL (130-400); RED BLOOD CELL COUNT 2.95 mill/uL (4.7-6.1); RED CELL DISTRIBUTION WIDTH 18.2 % (11.6-14.6)
[2018-05-30 20:00] VITALS: BP 148/80
[2018-05-30] MEDS: ATORVASTATIN CALCIUM 20MG TABLET PO SCH (20:44)
[2018-05-31] VITALS: BP 136/80
[2018-05-31] MEDS: HYDROCODONE/ACETAMINOPHEN 10/325MG TABLET PO PRN ×2 (03:36→11:08)
[2018-05-31 04:00] VITALS: BP 143/85
[2018-05-31] MEDS: CEFAZOLIN 2,000 MG in DEXT 5% WATER 100 ML IV SCH ×2 (06:46→14:23)
[2018-05-31] MEDS: HYDRALAZINE HCL 100MG TABLET PO SCH ×2 (06:46→14:22)
[2018-05-31] MEDS: BLOOD SUGAR DIAGNOSTIC STRIP TEST SCH ×4 (06:47→21:58)
[2018-05-31] MEDS: INSULIN LISPRO 100 UNITS/ML SUBCUT SCH ×4 (07:47→21:00)
[2018-05-31 08:00] VITALS: BP 148/85
[2018-05-31] MEDS: DOCUSATE SODIUM 250MG CAPSULE PO SCH (08:38)
[2018-05-31] MEDS: AMLODIPINE 10MG TABLET PO SCH ×2 (08:39→21:46)
[2018-05-31] MEDS: METOPROLOL TARTRATE 25MG TABLET PO SCH ×2 (08:39→21:46)
[2018-05-31 12:18] VITALS: BP 133/81
[2018-05-31 16:20] VITALS: BP 143/81
[2018-05-31] MEDS: HYDROMORPHONE HCL/PF 2MG/ML CPJ IV PRN ×2 (16:44→21:46)
[2018-05-31 20:00] VITALS: BP 146/85
[2018-05-31] MEDS: ATORVASTATIN CALCIUM 20MG TABLET PO SCH (21:45)
[2018-06-01] VITALS: BP 140/83
[2018-06-01] MEDS: HYDROCODONE/ACETAMINOPHEN 10/325MG TABLET PO PRN ×5 (00:18→21:34)
[2018-06-01] MEDS: CEFAZOLIN 2,000 MG in DEXT 5% WATER 100 ML IV SCH ×4 (00:20→21:33)
[2018-06-01] MEDS: HYDRALAZINE HCL 100MG TABLET PO SCH ×4 (00:20→21:34)
[2018-06-01 04:00] VITALS: BP 136/80
[2018-06-01] MEDS: BLOOD SUGAR DIAGNOSTIC STRIP TEST SCH ×4 (06:54→21:34)
[2018-06-01] MEDS: INSULIN LISPRO 100 UNITS/ML SUBCUT SCH ×4 (07:42→21:00)
[2018-06-01 08:00] VITALS: BP 144/89
[2018-06-01] MEDS: DOCUSATE SODIUM 250MG CAPSULE PO SCH (08:39)
[2018-06-01] MEDS: METOPROLOL TARTRATE 25MG TABLET PO SCH ×2 (08:39→21:35)
[2018-06-01] MEDS: AMLODIPINE 10MG TABLET PO SCH ×2 (08:39→21:35)
[2018-06-01] MEDS: LEVOFLOXACIN 250MG TABLET PO SCH (10:21)
[2018-06-01 12:00] VITALS: BP 137/84
[2018-06-01 16:20] VITALS: BP 139/80
[2018-06-01 20:00] VITALS: BP 140/78
[2018-06-01] MEDS: ATORVASTATIN CALCIUM 20MG TABLET PO SCH (21:34)
[2018-06-02] VITALS: BP 142/82
[2018-06-02] MEDS: ACETAMINOPHEN 325MG TABLET PO PRN (00:26)
[2018-06-02 04:00] VITALS: BP 136/83
[2018-06-02] MEDS: HYDRALAZINE HCL 100MG TABLET PO SCH ×3 (05:09→22:17)
[2018-06-02] MEDS: HYDROCODONE/ACETAMINOPHEN 10/325MG TABLET PO PRN ×2 (05:11→23:13)
[2018-06-02] MEDS: CEFAZOLIN 2,000 MG in DEXT 5% WATER 100 ML IV SCH ×2 (05:12→17:36)
[2018-06-02 05:41] VITALS: BP 136/83
[2018-06-02] MEDS ORDERED: NORMAL SALINE 0.9% 10 ML SYR ONE (07:07)
[2018-06-02] MEDS ORDERED: BUPIVACAINE HCL/PF 0.5% (5MG/ML) 10ML ONE (07:07)
[2018-06-02] MEDS ORDERED: BUPIVACAINE HCL/EPINEPHRINE 0.5%/0.0005 30ML ONE (07:08)
[2018-06-02] MEDS ORDERED: BACITRACIN 15GM TUBE TOP ONE (07:08)
[2018-06-02] MEDS ORDERED: BACITRACIN 50,000 UNITS/VIAL ONE ×2 (07:08→07:35)
[2018-06-02] MEDS ORDERED: VANCOMYCIN HCL 500 MG/VIAL ONE (07:29)
[2018-06-02] MEDS ORDERED: MIDAZOLAM HCL 2 MG/2 ML VIAL ONE (07:34)
[2018-06-02] MEDS ORDERED: PROPOFOL 200MG/20ML VIAL IV ONE (07:34)
[2018-06-02] MEDS ORDERED: FENTANYL CITRATE/PF 50MCG/ML 2ML VIAL ONE (07:34)
[2018-06-02] MEDS: INSULIN LISPRO 100 UNITS/ML SUBCUT SCH ×4 (07:46→21:00)
[2018-06-02] MEDS ORDERED: DEXAMETHASONE 4MG/ML 1ML VIAL ONE (07:48)
[2018-06-02] MEDS ORDERED: ONDANSETRON HCL 4MG/2ML INJ ONE (07:48)
[2018-06-02] MEDS: BLOOD SUGAR DIAGNOSTIC STRIP TEST SCH ×4 (08:13→21:00)
[2018-06-02] MEDS ORDERED: SODIUM CHLORIDE 0.9% 1,000 ML IV ONE (08:35)
[2018-06-02] MEDS ORDERED: ONDANSETRON HCL 4MG/2ML INJ IV PRN (08:45)
[2018-06-02] MEDS ORDERED: MEPERIDINE HCL/PF 25MG/ML CPJ IV PRN (08:45)
[2018-06-02] MEDS: HYDROMORPHONE HCL/PF 2MG/ML CPJ IV PRN ×4 (10:37→17:36)
[2018-06-02 12:00] VITALS: BP 139/86
[2018-06-02] MEDS: METOPROLOL TARTRATE 25MG TABLET PO SCH ×2 (12:13→22:18)
[2018-06-02] MEDS: AMLODIPINE 10MG TABLET PO SCH ×2 (12:13→22:19)
[2018-06-02] MEDS: DOCUSATE SODIUM 250MG CAPSULE PO SCH (12:13)
[2018-06-02] MEDS: LEVOFLOXACIN 250MG TABLET PO SCH (12:17)
[2018-06-02 16:00] VITALS: BP 131/78
[2018-06-02 20:00] VITALS: BP 138/80
[2018-06-02] MEDS: ATORVASTATIN CALCIUM 20MG TABLET PO SCH (22:18)
[2018-06-02] MEDS: LINEZOLID 600 MG PREMIX 300 ML IV SCH (23:15)
[2018-06-03] VITALS: BP 140/76
[2018-06-03] MEDS: HYDROMORPHONE HCL/PF 2MG/ML CPJ IV PRN ×4 (00:36→17:50)
[2018-06-03 04:00] VITALS: BP 132/75
[2018-06-03] MEDS: HYDRALAZINE HCL 100MG TABLET PO SCH ×3 (06:24→21:31)
[2018-06-03] MEDS: BLOOD SUGAR DIAGNOSTIC STRIP TEST SCH ×4 (06:30→21:31)
[2018-06-03] MEDS: INSULIN LISPRO 100 UNITS/ML SUBCUT SCH ×4 (07:50→21:00)
[2018-06-03 08:00] VITALS: BP 140/79
[2018-06-03 08:12] LABS: BASOPHILS % 0.3 % (0.0-2.0); EOSINOPHILS % 1.8 % (0.0-5.0); HEMATOCRIT. 27.1 % (42.0-52.0); HEMOGLOBIN. 8.6 g/dL (14.0-18.0); LYMPHOCYTES % 7.3 % (20.0-50.0); MEAN CORPUSCULAR HEMOGLOBIN 27.1 pg (28.0-32.0); MEAN PLATELET VOLUME 8.7 fl (7.4-10.4); MONOCYTES % 10.4 % (2.0-8.0); NEUTROPHILS % 80.2 % (40.0-76.0); PLATELET 552 x1000/uL (130-400); RED BLOOD CELL COUNT 3.19 mill/uL (4.7-6.1)
[2018-06-03 08:41] LABS: CHLORIDE 102 mEq/L (98-107)
[2018-06-03] MEDS: METOPROLOL TARTRATE 25MG TABLET PO SCH ×2 (09:22→21:31)
[2018-06-03] MEDS: DOCUSATE SODIUM 250MG CAPSULE PO SCH (09:22)
[2018-06-03] MEDS: AMLODIPINE 10MG TABLET PO SCH ×2 (09:22→21:30)
[2018-06-03] MEDS: HYDROCODONE/ACETAMINOPHEN 10/325MG TABLET PO PRN ×2 (10:07→21:30)
[2018-06-03] MEDS: LINEZOLID 600 MG PREMIX 300 ML IV SCH ×2 (11:12→23:31)
[2018-06-03] MEDS ORDERED: POTASSIUM CHLORIDE 20MEQ TABLET SR PO NR (11:30)
[2018-06-03 12:00] VITALS: BP 134/77
[2018-06-03] MEDS: LEVOFLOXACIN 250MG TABLET PO SCH (13:34)
[2018-06-03 16:00] VITALS: BP 129/75
[2018-06-03] MEDS: ATORVASTATIN CALCIUM 20MG TABLET PO SCH (21:30)
[2018-06-04] VITALS: BP_SYST 127; BP_SYST 133; BP_DIAS 76; BP_DIAS 77
[2018-06-04] MEDS: HYDROMORPHONE HCL/PF 2MG/ML CPJ IV PRN ×4 (02:29→20:45)
[2018-06-04 04:00] VITALS: BP 133/77
[2018-06-04 05:56] LABS: BASOPHILS % 0.5 % (0.0-2.0); EOSINOPHILS % 2.1 % (0.0-5.0); HEMATOCRIT. 25.4 % (42.0-52.0); HEMOGLOBIN. 8.5 g/dL (14.0-18.0); LYMPHOCYTES % 8.3 % (20.0-50.0); MEAN CORPUSCULAR HEMOGLOBIN 28.1 pg (28.0-32.0); MEAN CORPUSCULAR VOLUME 84.1 fL (80.0-94.0); MEAN PLATELET VOLUME 8.8 fl (7.4-10.4); NEUTROPHILS % 80.1 % (40.0-76.0); PLATELET 546 x1000/uL (130-400); RED BLOOD CELL COUNT 3.02 mill/uL (4.7-6.1); RED CELL DISTRIBUTION WIDTH 18.2 % (11.6-14.6)
[2018-06-04 06:21] LABS: CHLORIDE 101 mEq/L (98-107)
[2018-06-04] MEDS: HYDRALAZINE HCL 100MG TABLET PO SCH ×3 (06:32→21:56)
[2018-06-04] MEDS: BLOOD SUGAR DIAGNOSTIC STRIP TEST SCH ×4 (06:33→20:47)
[2018-06-04] MEDS: INSULIN LISPRO 100 UNITS/ML SUBCUT SCH ×4 (07:49→21:00)
[2018-06-04 08:00] VITALS: BP 133/82
[2018-06-04] MEDS: METOPROLOL TARTRATE 25MG TABLET PO SCH ×2 (08:36→20:46)
[2018-06-04] MEDS: AMLODIPINE 10MG TABLET PO SCH ×2 (08:36→20:46)
[2018-06-04] MEDS: DOCUSATE SODIUM 250MG CAPSULE PO SCH (08:36)
[2018-06-04 09:44] LABS: BASOPHILS % 0.6 % (0.0-2.0); EOSINOPHILS % 2.5 % (0.0-5.0); HEMATOCRIT. 26.3 % (42.0-52.0); HEMOGLOBIN. 8.7 g/dL (14.0-18.0); LYMPHOCYTES % 12.7 % (20.0-50.0); MEAN CORPUSCULAR HEMOGLOBIN 27.8 pg (28.0-32.0); MEAN CORPUSCULAR VOLUME 84.4 fL (80.0-94.0); MEAN PLATELET VOLUME 8.8 fl (7.4-10.4); MONOCYTES % 10.2 % (2.0-8.0); PLATELET 543 x1000/uL (130-400); RED BLOOD CELL COUNT 3.12 mill/uL (4.7-6.1); RED CELL DISTRIBUTION WIDTH 18.2 % (11.6-14.6)
[2018-06-04 09:51] LABS: CHLORIDE 103 mEq/L (98-107)
[2018-06-04 12:00] VITALS: BP 127/81
[2018-06-04] MEDS: LEVOFLOXACIN 250MG TABLET PO SCH (14:27)
[2018-06-04] MEDS: LINEZOLID 600 MG PREMIX 300 ML IV SCH ×2 (14:28→22:33)
[2018-06-04 16:00] VITALS: BP 129/81
[2018-06-04 20:00] VITALS: BP 126/81
[2018-06-04] MEDS: ATORVASTATIN CALCIUM 20MG TABLET PO SCH (20:46)
[2018-06-05] VITALS: BP 128/74
[2018-06-05] MEDS: HYDROMORPHONE HCL/PF 2MG/ML CPJ IV PRN ×4 (02:20→22:15)
[2018-06-05 04:00] VITALS: BP 128/84
[2018-06-05] MEDS: HYDRALAZINE HCL 100MG TABLET PO SCH ×3 (06:17→23:12)
[2018-06-05] MEDS: BLOOD SUGAR DIAGNOSTIC STRIP TEST SCH ×3 (06:26→17:57)
[2018-06-05] MEDS: INSULIN LISPRO 100 UNITS/ML SUBCUT SCH ×3 (07:50→17:50)
[2018-06-05 08:00] VITALS: BP 130/83
[2018-06-05 08:06] LABS: HEMATOCRIT. 25.7 % (42.0-52.0); HEMOGLOBIN. 8.5 g/dL (14.0-18.0); MEAN CORPUSCULAR HEMOGLOBIN 27.6 pg (28.0-32.0); MEAN CORPUSCULAR VOLUME 83.7 fL (80.0-94.0); MEAN PLATELET VOLUME 8.7 fl (7.4-10.4); PLATELET 571 x1000/uL (130-400); RED BLOOD CELL COUNT 3.07 mill/uL (4.7-6.1); RED CELL DISTRIBUTION WIDTH 18.2 % (11.6-14.6)
[2018-06-05] MEDS: AMLODIPINE 10MG TABLET PO SCH ×2 (08:23→21:31)
[2018-06-05] MEDS: DOCUSATE SODIUM 250MG CAPSULE PO SCH (08:23)
[2018-06-05] MEDS: METOPROLOL TARTRATE 25MG TABLET PO SCH ×2 (08:24→21:31)
[2018-06-05 10:08] LABS: CHLORIDE 102 mEq/L (98-107)
[2018-06-05] MEDS ORDERED: HYDROMORPHONE HCL/PF 2MG/ML CPJ IV NR (10:15)
[2018-06-05] MEDS: LINEZOLID 600 MG PREMIX 300 ML IV SCH ×2 (10:38→23:13)
[2018-06-05] MEDS: LEVOFLOXACIN 250MG TABLET PO SCH (10:38)
[2018-06-05 10:52] LABS: PLATELET ESTIMATE INCREASED
[2018-06-05 16:00] VITALS: BP 122/78
[2018-06-05 20:00] VITALS: BP 138/85
[2018-06-05] MEDS: ATORVASTATIN CALCIUM 20MG TABLET PO SCH (21:30)
[2018-06-06] VITALS: BP 135/81
[2018-06-06 04:00] VITALS: BP 127/75
[2018-06-06] MEDS: HYDROMORPHONE HCL/PF 2MG/ML CPJ IV PRN ×4 (06:05→23:03)
[2018-06-06] MEDS: HYDRALAZINE HCL 100MG TABLET PO SCH ×3 (06:47→20:31)
[2018-06-06] MEDS: BLOOD SUGAR DIAGNOSTIC STRIP TEST SCH (07:20)
[2018-06-06] MEDS: AMLODIPINE 10MG TABLET PO SCH ×2 (09:00→20:26)
[2018-06-06] MEDS: METOPROLOL TARTRATE 25MG TABLET PO SCH ×2 (09:00→20:26)
[2018-06-06] MEDS: DOCUSATE SODIUM 250MG CAPSULE PO SCH (09:00)
[2018-06-06] MEDS: HYDROCODONE/ACETAMINOPHEN 10/325MG TABLET PO PRN ×2 (09:22→20:27)
[2018-06-06 09:46] LABS: HEMATOCRIT. 27.3 % (42.0-52.0); HEMOGLOBIN. 8.8 g/dL (14.0-18.0); MEAN CORPUSCULAR VOLUME 84.1 fL (80.0-94.0); MEAN PLATELET VOLUME 8.4 fl (7.4-10.4); PLATELET 551 x1000/uL (130-400); RED BLOOD CELL COUNT 3.24 mill/uL (4.7-6.1); RED CELL DISTRIBUTION WIDTH 18.3 % (11.6-14.6)
[2018-06-06] MEDS: LINEZOLID 600 MG PREMIX 300 ML IV SCH ×2 (11:00→22:11)
[2018-06-06 11:53] LABS: CHLORIDE 102 mEq/L (98-107)
[2018-06-06 12:00] VITALS: BP 136/81
[2018-06-06] MEDS: INSULIN LISPRO 100 UNITS/ML SUBCUT SCH (12:50)
[2018-06-06] MEDS: LEVOFLOXACIN 250MG TABLET PO SCH (12:51)
[2018-06-06 13:16] VITALS: BP 153/86
[2018-06-06] MEDS: ATORVASTATIN CALCIUM 20MG TABLET PO SCH (14:52)
[2018-06-06 16:00] VITALS: BP 135/84
[2018-06-06 19:18] LABS: PLATELET ESTIMATE INCREASED
[2018-06-06 20:00] VITALS: BP 141/85
[2018-06-07] VITALS: BP 137/80
[2018-06-07] MEDS: HYDROCODONE/ACETAMINOPHEN 10/325MG TABLET PO PRN ×3 (02:13→15:29)
[2018-06-07 04:00] VITALS: BP 141/83
[2018-06-07] MEDS: HYDROMORPHONE HCL/PF 2MG/ML CPJ IV PRN ×2 (05:06→11:26)
[2018-06-07] MEDS: INSULIN LISPRO 100 UNITS/ML SUBCUT SCH ×3 (07:50→18:32)
[2018-06-07] MEDS: HYDRALAZINE HCL 100MG TABLET PO SCH ×2 (07:52→15:28)
[2018-06-07] MEDS: BLOOD SUGAR DIAGNOSTIC STRIP TEST SCH ×3 (08:50→18:31)
[2018-06-07] MEDS: DOCUSATE SODIUM 250MG CAPSULE PO SCH (09:18)
[2018-06-07] MEDS: AMLODIPINE 10MG TABLET PO SCH (09:18)
[2018-06-07] MEDS: METOPROLOL TARTRATE 25MG TABLET PO SCH (09:19)
[2018-06-07 10:00] LABS: HEMATOCRIT. 28.4 % (42.0-52.0); HEMOGLOBIN. 9.1 g/dL (14.0-18.0); MEAN CORPUSCULAR HEMOGLOBIN 26.9 pg (28.0-32.0); MEAN CORPUSCULAR VOLUME 83.8 fL (80.0-94.0); MEAN PLATELET VOLUME 8.4 fl (7.4-10.4); PLATELET 529 x1000/uL (130-400); RED BLOOD CELL COUNT 3.39 mill/uL (4.7-6.1); RED CELL DISTRIBUTION WIDTH 18.4 % (11.6-14.6)
[2018-06-07 10:06] LABS: CHLORIDE 102 mEq/L (98-107)
[2018-06-07 11:20] VITALS: BP 137/81
[2018-06-07] MEDS: LEVOFLOXACIN 250MG TABLET PO SCH (11:35)
[2018-06-07] MEDS: LINEZOLID 600 MG PREMIX 300 ML IV SCH (11:41)
[2018-06-07] MEDS ORDERED: HYDR100T26 PO (12:24)
[2018-06-07] MEDS ORDERED: DEXTROSE 50% WATER 50ML SYRINGE IV PRN (14:30)
[2018-06-07] MEDS: POTASSIUM CHLORIDE 20MEQ TABLET SR PO NR ×2 (15:18→15:28)
[2018-06-07 15:25] VITALS: BP 133/79
[2018-06-07] MEDS ORDERED: BLOOD SUGAR DIAGNOSTIC STRIP TEST SCH (17:20)
[2018-06-07 17:28] VITALS: BP 133/79
[2018-06-07] MEDS ORDERED: INSULIN LISPRO 100 UNITS/ML SUBCUT SCH (17:50)
[2018-06-07 19:09] LABS: PLATELET ESTIMATE INCREASED
== END 2018-06-07 18:55 | disposition home or self-care (01) | DRG 710 ==
LOC: ER 11:35 → 5WST 18:00 → ENRESERV 19:13 → CVICU 05-17 18:20 → 6EST 05-18 15:20
PROVIDERS: ADMIT Internal Medicine; ATTEND Internal Medicine
PROC: 0Y6D0Z2 Detachment at Left Upper Leg, Mid, Open Approach (ICD-10-PCS; principal; 2018-05-17)
PROC: 30233K1 Transfusion of Nonautologous Frozen Plasma into Peripheral Vein, Percutaneous Approach (ICD-10-PCS; 2018-05-17)
PROC: 30233N1 Transfusion of Nonautologous Red Blood Cells into Peripheral Vein, Percutaneous Approach (ICD-10-PCS; 2018-05-17)
PROC: 0QBC0ZZ Excision of Left Lower Femur, Open Approach (ICD-10-PCS; 2018-06-02)
PROC: 0HCJXZZ Extirpation of Matter from Left Upper Leg Skin, External Approach (ICD-10-PCS; 2018-06-02)
DX: A41.9 Sepsis, unspecified organism (principal); N17.0 Acute kidney failure with tubular necrosis; E43 Unspecified severe protein-calorie malnutrition; I50.23 Acute on chronic systolic (congestive) heart failure; A48.0 Gas gangrene; E11.22 Type 2 diabetes mellitus with diabetic chronic kidney disease; D68.9 Coagulation defect, unspecified; E11.52 Type 2 diabetes mellitus with diabetic peripheral angiopathy with gangrene; D63.8 Anemia in other chronic diseases classified elsewhere; E11.621 Type 2 diabetes mellitus with foot ulcer; E78.00 Pure hypercholesterolemia, unspecified; E78.5 Hyperlipidemia, unspecified; G54.6 Phantom limb syndrome with pain; L97.929 Non-pressure chronic ulcer of unspecified part of left lower leg with unspecified severity; I13.0 Hypertensive heart and chronic kidney disease with heart failure and stage 1 through stage 4 chronic kidney disease, or unspecified chronic kidney disease; I25.10 Atherosclerotic heart disease of native coronary artery without angina pectoris; I42.9 Cardiomyopathy, unspecified; K76.0 Fatty (change of) liver, not elsewhere classified; I70.201 Unspecified atherosclerosis of native arteries of extremities, right leg; R26.9 Unspecified abnormalities of gait and mobility; I87.8 Other specified disorders of veins; N18.2 Chronic kidney disease, stage 2 (mild); Z53.20 Procedure and treatment not carried out because of patient's decision for unspecified reasons; F17.210 Nicotine dependence, cigarettes, uncomplicated; Z82.49 Family history of ischemic heart disease and other diseases of the circulatory system; Z83.3 Family history of diabetes mellitus; I69.354 Hemiplegia and hemiparesis following cerebral infarction affecting left non-dominant side; Z68.24 Body mass index [BMI] 24.0-24.9, adult; L76.32 Postprocedural hematoma of skin and subcutaneous tissue following other procedure; Y83.8 Other surgical procedures as the cause of abnormal reaction of the patient, or of later complication, without mention of misadventure at the time of the procedure; Y92.89 Other specified places as the place of occurrence of the external cause
CPT/HCPCS: 36415; 36430; 36600; 71045; 73552; 73700; 75635; 76700; 80048; 80202; 80305; 82270; 82375; 82550; 82728; 82805; 82962; 83010; 83036; 83540; 83550; 83605; 83615; 83735; 83880; 84100; 84134; 84145; 84484; 85014; 85018; 85049; 85362; 85379; 85384; 86705; 86709; 86803; 86850; 86900; 86920; 86927; 87070; 87075; 87077; 87186; 87340; 88307; 88311; 93005; 93922; 93970; 96365; 96372; 96375; 97163; 97164; 97166; 97530; 97535; 99285; J0171; J0360; J0690; J1100; J1170; J1650; J1815; J2020; J2175; J2250; J2270; J2405; J2543; J2704; J3010; J3370; J3430; J3475; J3490; J7030; J7040; J7050; J7060; P9016; P9017; P9041; Q9967

== ENCOUNTER 2018-07-29 11:56 | Emergency (ER) | payer MEDICAID ==
[~2018-07-29] VITALS: Ht 188 cm; Wt 100.0 kg
[~2018-07-29 11:56] MED LIST changes: +HYDR100T26 PO; -INSU100I24 SQ; -KETO15CR2 TP; -METF-416 MT
[2018-07-29 13:15] VITALS: BP 174/110
== END 2018-07-29 14:24 | disposition home or self-care (01) ==
LOC: ER 11:56
DX: R60.0 Localized edema (principal); I11.0 Hypertensive heart disease with heart failure; I50.9 Heart failure, unspecified; E78.00 Pure hypercholesterolemia, unspecified; E11.9 Type 2 diabetes mellitus without complications; F17.210 Nicotine dependence, cigarettes, uncomplicated; Z79.4 Long term (current) use of insulin; Z91.013 Allergy to seafood
CPT/HCPCS: 93971; 99284

== ENCOUNTER 2018-08-14 19:53 | Emergency (ER) | payer MEDICAID ==
[~2018-08-14] VITALS: Ht 190.5 cm; Wt 107.0 kg
[2018-08-14 21:07] VITALS: BP 187/108
== END 2018-08-15 00:24 | disposition left against medical advice (07) ==
LOC: ER 19:53
DX: N50.812 Left testicular pain (principal); N50.811 Right testicular pain; Z53.21 Procedure and treatment not carried out due to patient leaving prior to being seen by health care provider
CPT/HCPCS: 82962

== ENCOUNTER 2018-08-16 04:58 | Inpatient (IN) | payer MEDICAID ==
[~2018-08-16] VITALS: Ht 188 cm; Wt 104.3 kg
[2018-08-16 06:49] LABS: HEMATOCRIT. 28.1 % (42.0-52.0); MEAN CORPUSCULAR HEMOGLOBIN 27.4 pg (28.0-32.0); MEAN CORPUSCULAR VOLUME 85.7 fL (80.0-94.0); MEAN PLATELET VOLUME 10.2 fl (7.4-10.4); PLATELET 333 x1000/uL (130-400); RED BLOOD CELL COUNT 3.27 mill/uL (4.7-6.1); RED CELL DISTRIBUTION WIDTH 20.5 % (11.6-14.6)
[2018-08-16 06:56] LABS: CHLORIDE 107 mEq/L (98-107)
[2018-08-16 06:58] LABS: INR 1.4; PROTHROMBIN TIME 14.7 sec (9.6-11.0)
[2018-08-16] MEDS ORDERED: HYDROCODONE/ACETAMINOPHEN 5/325MG TABLET PO ONE (07:15)
[2018-08-16 07:25] LABS: NUCLEATED RED BLOOD CELLS 1 /100 WBC
[2018-08-16 07:27] LABS: PLATELET ESTIMATE NORMAL
[2018-08-16] MEDS ORDERED: ASPIRIN 81MG TABLET PO ONE (07:30)
[2018-08-16] MEDS ORDERED: FUROSEMIDE 40MG/4ML VIAL IVP ONE (07:30)
[2018-08-16] MEDS ORDERED: POTASSIUM CHLORIDE 20MEQ TABLET SR PO ONE (07:45)
[2018-08-16] MEDS ORDERED: MAGNESIUM/ALUMINUM HYDROXIDE/SIMETHICONE 30ML UDC PO PRN (09:15)
[2018-08-16] MEDS ORDERED: DIPHENHYDRAMINE 50MG/ML VIAL IV PRN (09:15)
[2018-08-16] MEDS ORDERED: DOCUSATE SODIUM 100MG CAPSULE PO PRN (09:15)
[2018-08-16] MEDS ORDERED: ACETAMINOPHEN 325MG TABLET PO PRN (09:15)
[2018-08-16] MEDS ORDERED: CLONIDINE 0.1MG TABLET PO PRN ×2 (09:15→15:45)
[2018-08-16] MEDS ORDERED: IPRATROPIUM/ALBUTEROL 0.5-3(2.5)MG/3ML NEB INH PRN (09:15)
[2018-08-16] MEDS ORDERED: GUAIFENESIN 200MG/10ML SUGAR FREE UDC PO PRN (09:15)
[2018-08-16] MEDS ORDERED: ONDANSETRON HCL 4MG/2ML INJ IV PRN (09:15)
[2018-08-16 09:20] LABS: PHOSPHORUS 3.7 mg/dL (2.5-4.9)
[2018-08-16] MEDS: HYDROCODONE/ACETAMINOPHEN 5/325MG TABLET PO PRN ×2 (13:47→13:58)
[2018-08-16 15:05] LABS: CHLORIDE 105 mEq/L (98-107)
[2018-08-16 15:13] LABS: CREATINE KINASE 394 IU/L (39-308)
[2018-08-16 15:15] LABS: CREATINE KINASE MB FRACTION 2.7 ng/mL (0.5-3.6)
[2018-08-16] MEDS ORDERED: HYDRALAZINE 20MG/ML VIAL IV PRN (15:45)
[2018-08-16] MEDS ORDERED: AMLODIPINE 5MG TABLET PO SCH (15:45)
[2018-08-16] MEDS ORDERED: LOSARTAN POTASSIUM 25 MG TABLET PO SCH (15:45)
[2018-08-16 16:12] VITALS: BP 158/103
[2018-08-16 16:32] VITALS: BP 153/107
[2018-08-16 16:44] LABS: *AMPHETAMINES SCREEN URINE NEGATIVE (NEGATIVE); *BARBITURATES SCREEN URINE NEGATIVE (NEGATIVE); *BENZODIAZEPINES SCREEN URINE NEGATIVE (NEGATIVE); *COCAINE SCREEN URINE NEGATIVE (NEGATIVE); METHADONE URINE SCREEN NEGATIVE (NEGATIVE); OPIATES URINE SCREEN PRESUMTIVE POSITIVE (NEGATIVE)
[2018-08-16 16:45] LABS: CANNABINOID URINE SCREEN PRESUMTIVE POSITIVE (NEGATIVE); PHENCYCLIDINE URINE SCREEN NEGATIVE (NEGATIVE)
[2018-08-16] MEDS ORDERED: POTASSIUM CHLORIDE 20MEQ TABLET SR PO SCH (17:00)
[2018-08-16] MEDS ORDERED: DEXTROSE 50% WATER 50ML SYRINGE IV PRN (17:00)
[2018-08-16] MEDS ORDERED: BLOOD SUGAR DIAGNOSTIC STRIP TEST SCH (17:10)
[2018-08-16] MEDS ORDERED: FUROSEMIDE 100MG/10ML VIAL IVP SCH (17:15)
[2018-08-16] MEDS ORDERED: INSULIN LISPRO 100 UNITS/ML SUBCUT SCH (17:40)
[2018-08-16] MEDS ORDERED: MAGNESIUM 2 G PREMIX 50 ML IV NR (18:00)
[2018-08-16 18:20] LABS: TOTAL IRON BINDING CAPACITY 348 ug/dL (250-450)
[2018-08-16 20:00] VITALS: BP 167/103
[2018-08-16] MEDS ORDERED: HYDRALAZINE HCL 100MG TABLET PO SCH (22:00)
[2018-08-24 08:28] LABS: HEMATOCRIT. 28.4 % (42.0-52.0); MEAN CORPUSCULAR VOLUME 84.9 fL (80.0-94.0); MEAN PLATELET VOLUME 10.3 fl (7.4-10.4); PLATELET 349 x1000/uL (130-400); RED BLOOD CELL COUNT 3.35 mill/uL (4.7-6.1); RED CELL DISTRIBUTION WIDTH 20.2 % (11.6-14.6)
[2018-08-24 08:32] LABS: CHLORIDE 111 mEq/L (98-107)
[2018-08-24 09:12] LABS: PLATELET ESTIMATE NORMAL
== END 2018-08-16 21:25 | disposition left against medical advice (07) | DRG 194 ==
LOC: ER 04:58 → 8WST 07:24 → EDBEDREQ 07:26 → ENRESERV 14:00
PROVIDERS: ADMIT Internal Medicine; ATTEND Internal Medicine
DX: I11.0 Hypertensive heart disease with heart failure (principal); E43 Unspecified severe protein-calorie malnutrition; E11.51 Type 2 diabetes mellitus with diabetic peripheral angiopathy without gangrene; I42.0 Dilated cardiomyopathy; E87.6 Hypokalemia; E83.42 Hypomagnesemia; E66.01 Morbid (severe) obesity due to excess calories; Z53.21 Procedure and treatment not carried out due to patient leaving prior to being seen by health care provider; R74.0 Nonspecific elevation of levels of transaminase and lactic acid dehydrogenase [LDH]; D64.9 Anemia, unspecified; I50.23 Acute on chronic systolic (congestive) heart failure; Z87.01 Personal history of pneumonia (recurrent); Z89.612 Acquired absence of left leg above knee; Z87.891 Personal history of nicotine dependence; Z99.3 Dependence on wheelchair; Z68.29 Body mass index [BMI] 29.0-29.9, adult; Z91.013 Allergy to seafood; Z79.899 Other long term (current) drug therapy
CPT/HCPCS: 36415; 71045; 80305; 82550; 82553; 82728; 82962; 83036; 83540; 83550; 83735; 83880; 84100; 84484; 93005; 93971; 96374; 99285; J1940; J3475; J7050

== ENCOUNTER 2018-08-24 07:33 | Inpatient (IN) | payer MEDICAID ==
[~2018-08-24] VITALS: Ht 188 cm; Wt 111.6 kg
[2018-08-24] MEDS ORDERED: ONDANSETRON HCL 4MG/2ML INJ IV PRN (09:30)
[2018-08-24] MEDS ORDERED: LOSARTAN POTASSIUM 50 MG TABLET PO SCH (09:30)
[2018-08-24] MEDS ORDERED: ACETAMINOPHEN 325MG TABLET PO PRN (09:30)
[2018-08-24] MEDS ORDERED: ZOLPIDEM TARTRATE 5MG TABLET PO PRN (09:30)
[2018-08-24] MEDS: FUROSEMIDE 40MG/4ML VIAL IVP SCH ×2 (10:02→16:40)
[2018-08-24] MEDS ORDERED: HYDR-4001 PO (11:27)
[2018-08-24 12:00] VITALS: BP 168/90
[2018-08-24] MEDS: FERROUS SULFATE 325MG TABLET PO SCH ×2 (12:27→17:06)
[2018-08-24] MEDS: HYDROCODONE/ACETAMINOPHEN 5/325MG TABLET PO PRN (12:30)
[2018-08-24] MEDS: CLONIDINE 0.1MG TABLET PO PRN (12:30)
[2018-08-24] MEDS ORDERED: PNEUMOCOCCAL 23-VAL P-SAC VAC 0.5 ML IM ONE (14:00)
[2018-08-24] MEDS ORDERED: INFLUENZA VIRUS VACCINE(AFLURIA) 0.5ML SYR IM ONE (14:30)
[2018-08-24] MEDS: NITROGLYCERIN 0.1MG/HR PATCH TOP SCH (14:33)
[2018-08-24 14:46] LABS: *AMPHETAMINES SCREEN URINE NEGATIVE (NEGATIVE); *BARBITURATES SCREEN URINE NEGATIVE (NEGATIVE); *BENZODIAZEPINES SCREEN URINE NEGATIVE (NEGATIVE); *COCAINE SCREEN URINE NEGATIVE (NEGATIVE); METHADONE URINE SCREEN NEGATIVE (NEGATIVE); OPIATES URINE SCREEN PRESUMTIVE POSITIVE (NEGATIVE); PHENCYCLIDINE URINE SCREEN NEGATIVE (NEGATIVE)
[2018-08-24 14:47] LABS: CANNABINOID URINE SCREEN NEGATIVE (NEGATIVE)
[2018-08-24 16:00] VITALS: BP 161/91
[2018-08-24] MEDS: DOCUSATE SODIUM 100MG CAPSULE PO SCH (16:41)
[2018-08-24] MEDS: LOSARTAN POTASSIUM 50 MG TABLET PO SCH (16:41)
[2018-08-24] MEDS ORDERED: DEXTROSE 50% WATER 50ML SYRINGE IV PRN (16:45)
[2018-08-24] MEDS: ENOXAPARIN 30MG/0.3ML SYR SUBCUT SCH (16:46)
[2018-08-24] MEDS: INSULIN LISPRO 100 UNITS/ML SUBCUT SCH ×2 (17:06→21:44)
[2018-08-24] MEDS: BLOOD SUGAR DIAGNOSTIC STRIP TEST SCH ×2 (17:06→21:24)
[2018-08-24] MEDS: MORPHINE SULFATE 4 MG/ML CPJ (NOT FOR IM USE) IV PRN (21:23)
[2018-08-24] MEDS: CARVEDILOL 6.25 MG TABLET PO SCH (21:23)
[2018-08-24] MEDS: ATORVASTATIN CALCIUM 20MG TABLET PO SCH (21:24)
[2018-08-24] MEDS: AMLODIPINE 5MG TABLET PO SCH (21:24)
[2018-08-25 00:01] VITALS: BP 157/96
[2018-08-25] MEDS: MORPHINE SULFATE 4 MG/ML CPJ (NOT FOR IM USE) IV PRN ×5 (03:08→20:49)
[2018-08-25] MEDS: CLONIDINE 0.1MG TABLET PO PRN (03:13)
[2018-08-25 05:52] LABS: HEMATOCRIT. 25.6 % (42.0-52.0); MEAN CORPUSCULAR HEMOGLOBIN 26.3 pg (28.0-32.0); MEAN CORPUSCULAR VOLUME 84.3 fL (80.0-94.0); MEAN PLATELET VOLUME 10.6 fl (7.4-10.4); PLATELET 357 x1000/uL (130-400); RED BLOOD CELL COUNT 3.04 mill/uL (4.7-6.1); RED CELL DISTRIBUTION WIDTH 19.6 % (11.6-14.6)
[2018-08-25 06:21] LABS: CHLORIDE 111 mEq/L (98-107)
[2018-08-25] MEDS: BLOOD SUGAR DIAGNOSTIC STRIP TEST SCH ×4 (07:51→21:16)
[2018-08-25 08:00] VITALS: BP 155/87
[2018-08-25] MEDS: CARVEDILOL 6.25 MG TABLET PO SCH ×2 (08:05→21:03)
[2018-08-25] MEDS: AMLODIPINE 5MG TABLET PO SCH ×2 (08:05→21:02)
[2018-08-25] MEDS: FERROUS SULFATE 325MG TABLET PO SCH ×3 (08:05→16:24)
[2018-08-25] MEDS: DOCUSATE SODIUM 100MG CAPSULE PO SCH ×2 (08:05→16:24)
[2018-08-25] MEDS: FUROSEMIDE 40MG/4ML VIAL IVP SCH ×2 (08:05→16:25)
[2018-08-25] MEDS: LOSARTAN POTASSIUM 50 MG TABLET PO SCH ×2 (08:05→21:03)
[2018-08-25] MEDS: ENOXAPARIN 30MG/0.3ML SYR SUBCUT SCH ×2 (08:06→21:02)
[2018-08-25] MEDS: INSULIN LISPRO 100 UNITS/ML SUBCUT SCH ×4 (08:10→21:00)
[2018-08-25 08:40] LABS: NUCLEATED RED BLOOD CELLS 1 /100 WBC; PLATELET ESTIMATE NORMAL
[2018-08-25] MEDS: NITROGLYCERIN 0.1MG/HR PATCH TOP SCH (09:00)
[2018-08-25 12:00] VITALS: BP 153/83
[2018-08-25] MEDS: SPIRONOLACTONE 25MG TABLET PO SCH (12:13)
[2018-08-25] MEDS: POTASSIUM CHLORIDE 20MEQ TABLET SR PO SCH (12:13)
[2018-08-25] MEDS: HYDRALAZINE HCL 100MG TABLET PO SCH ×2 (14:32→22:14)
[2018-08-25 16:00] VITALS: BP 143/88
[2018-08-25 17:57] LABS: CLARITY URINE CLEAR (CLEAR); COLOR URINE YELLOW (YELLOW); KETONES URINE NEGATIVE (NEGATIVE); LEUKOCYTE ESTERASE URINE NEGATIVE (NEGATIVE); NITRITE URINE NEGATIVE (NEGATIVE); OCCULT BLOOD URINE TRACE (NEGATIVE); PH URINE 5.5 (4.5-8.0); PROTEIN URINE 2+ (NEGATIVE); SPECIFIC GRAVITY URINE 1.008 (1.005-1.030); UROBILINOGEN URINE 0.2 E.U./dL (0.2-1.0)
[2018-08-25 20:00] VITALS: BP 141/81
[2018-08-25] MEDS: ATORVASTATIN CALCIUM 20MG TABLET PO SCH (21:03)
[2018-08-25 22:15] VITALS: BP 150/92
[2018-08-25] MEDS: HYDROCODONE/ACETAMINOPHEN 5/325MG TABLET PO PRN ×2 (23:16)
[2018-08-26] VITALS: BP 158/92
[2018-08-26] MEDS: MORPHINE SULFATE 4 MG/ML CPJ (NOT FOR IM USE) IV PRN ×5 (01:09→18:03)
[2018-08-26 04:00] VITALS: BP 160/93
[2018-08-26] MEDS: HYDRALAZINE HCL 100MG TABLET PO SCH ×3 (05:16→21:21)
[2018-08-26 06:19] LABS: CHLORIDE 109 mEq/L (98-107)
[2018-08-26 06:25] LABS: HEMATOCRIT. 27.3 % (42.0-52.0); HEMOGLOBIN. 8.6 g/dL (14.0-18.0); MEAN CORPUSCULAR HEMOGLOBIN 26.2 pg (28.0-32.0); MEAN CORPUSCULAR VOLUME 82.8 fL (80.0-94.0); MEAN PLATELET VOLUME 10.2 fl (7.4-10.4); PLATELET 349 x1000/uL (130-400); RED CELL DISTRIBUTION WIDTH 20.1 % (11.6-14.6)
[2018-08-26 06:26] LABS: LDL CHOLESTEROL 68 mg/dL (5-100)
[2018-08-26 06:28] LABS: HDL CHOLESTEROL 22 mg/dL (40-59)
[2018-08-26] MEDS: FUROSEMIDE 40MG/4ML VIAL IVP SCH ×2 (06:51→18:53)
[2018-08-26] MEDS: HYDROCODONE/ACETAMINOPHEN 5/325MG TABLET PO PRN ×2 (08:38→22:42)
[2018-08-26] MEDS: POTASSIUM CHLORIDE 20MEQ TABLET SR PO SCH (09:34)
[2018-08-26] MEDS: LOSARTAN POTASSIUM 50 MG TABLET PO SCH ×2 (09:35→21:20)
[2018-08-26] MEDS: CARVEDILOL 6.25 MG TABLET PO SCH (09:35)
[2018-08-26] MEDS: SPIRONOLACTONE 25MG TABLET PO SCH (09:35)
[2018-08-26] MEDS: METOLAZONE 2.5MG TABLET PO SCH (09:36)
[2018-08-26] MEDS: DOCUSATE SODIUM 100MG CAPSULE PO SCH ×2 (09:36→18:54)
[2018-08-26] MEDS: FERROUS SULFATE 325MG TABLET PO SCH ×3 (09:36→18:53)
[2018-08-26] MEDS: AMLODIPINE 5MG TABLET PO SCH (09:36)
[2018-08-26] MEDS: ENOXAPARIN 30MG/0.3ML SYR SUBCUT SCH ×2 (09:58→21:21)
[2018-08-26] MEDS: NITROGLYCERIN 0.1MG/HR PATCH TOP SCH (10:00)
[2018-08-26 12:00] VITALS: BP 155/88
[2018-08-26 12:00] LABS: PLATELET ESTIMATE NORMAL
[2018-08-26] MEDS ORDERED: MAGNESIUM 4 G PREMIX 100 ML IV SCH (12:00)
[2018-08-26 16:00] VITALS: BP 146/71
[2018-08-26] MEDS: DIPHENHYDRAMINE 50MG/ML VIAL IV PRN (18:03)
[2018-08-26 20:00] VITALS: BP 160/90
[2018-08-26] MEDS: INSULIN LISPRO 100 UNITS/ML SUBCUT SCH (21:00)
[2018-08-26] MEDS: CARVEDILOL 12.5MG TABLET PO SCH (21:20)
[2018-08-26] MEDS: BLOOD SUGAR DIAGNOSTIC STRIP TEST SCH (21:20)
[2018-08-26] MEDS: ATORVASTATIN CALCIUM 20MG TABLET PO SCH (21:21)
[2018-08-27] VITALS: BP 131/93
[2018-08-27] MEDS: MORPHINE SULFATE 4 MG/ML CPJ (NOT FOR IM USE) IV PRN ×4 (01:15→14:37)
[2018-08-27 04:00] VITALS: BP 148/95
[2018-08-27 06:04] LABS: BASOPHILS % 0.4 % (0.0-2.0); EOSINOPHILS % 3.5 % (0.0-5.0); HEMATOCRIT. 28.8 % (42.0-52.0); HEMOGLOBIN. 9.2 g/dL (14.0-18.0); LYMPHOCYTES % 9.3 % (20.0-50.0); MEAN CORPUSCULAR HEMOGLOBIN 26.4 pg (28.0-32.0); MEAN CORPUSCULAR VOLUME 82.9 fL (80.0-94.0); MEAN PLATELET VOLUME 10.2 fl (7.4-10.4); MONOCYTES % 14.8 % (2.0-8.0); PLATELET 372 x1000/uL (130-400); RED BLOOD CELL COUNT 3.47 mill/uL (4.7-6.1); RED CELL DISTRIBUTION WIDTH 20.3 % (11.6-14.6)
[2018-08-27 06:12] LABS: CHLORIDE 106 mEq/L (98-107)
[2018-08-27] MEDS: HYDRALAZINE HCL 100MG TABLET PO SCH ×2 (06:17→14:12)
[2018-08-27] MEDS: FUROSEMIDE 40MG/4ML VIAL IVP SCH (06:54)
[2018-08-27] MEDS: BLOOD SUGAR DIAGNOSTIC STRIP TEST SCH ×2 (07:55→12:40)
[2018-08-27] MEDS: INSULIN LISPRO 100 UNITS/ML SUBCUT SCH ×2 (07:55→14:15)
[2018-08-27] MEDS: DIPHENHYDRAMINE 50MG/ML VIAL IV PRN ×2 (07:56→14:12)
[2018-08-27] MEDS: FERROUS SULFATE 325MG TABLET PO SCH ×2 (07:56→14:12)
[2018-08-27] MEDS: POTASSIUM CHLORIDE 20MEQ TABLET SR PO SCH (07:56)
[2018-08-27] MEDS: METOLAZONE 2.5MG TABLET PO SCH (07:57)
[2018-08-27] MEDS: CARVEDILOL 12.5MG TABLET PO SCH (07:57)
[2018-08-27] MEDS: LOSARTAN POTASSIUM 50 MG TABLET PO SCH (07:57)
[2018-08-27] MEDS: SPIRONOLACTONE 25MG TABLET PO SCH (07:58)
[2018-08-27] MEDS: DOCUSATE SODIUM 100MG CAPSULE PO SCH (07:58)
[2018-08-27] MEDS: NITROGLYCERIN 0.1MG/HR PATCH TOP SCH (07:58)
[2018-08-27] MEDS: ENOXAPARIN 30MG/0.3ML SYR SUBCUT SCH (08:01)
[2018-08-27 08:30] VITALS: BP 131/77
[2018-08-27 12:01] VITALS: BP 129/79
[2018-08-27 16:16] VITALS: BP 147/81
== END 2018-08-27 18:36 | disposition left against medical advice (07) | DRG 194 ==
LOC: ER 07:41 → EDBEDREQ 08:18 → 7WST 08:30 → EDBEDREQ 08:55 → EDBEDREQTM 08:55 → ENRESERV 10:10 → 7WST 11:24
PROVIDERS: ADMIT Internal Medicine; ATTEND Internal Medicine
DX: I11.0 Hypertensive heart disease with heart failure (principal); E11.51 Type 2 diabetes mellitus with diabetic peripheral angiopathy without gangrene; E11.40 Type 2 diabetes mellitus with diabetic neuropathy, unspecified; E83.42 Hypomagnesemia; R18.8 Other ascites; I50.23 Acute on chronic systolic (congestive) heart failure; D64.9 Anemia, unspecified; I42.9 Cardiomyopathy, unspecified; J44.9 Chronic obstructive pulmonary disease, unspecified; N50.89 Other specified disorders of the male genital organs; Z53.21 Procedure and treatment not carried out due to patient leaving prior to being seen by health care provider; F17.210 Nicotine dependence, cigarettes, uncomplicated; E78.00 Pure hypercholesterolemia, unspecified; E66.9 Obesity, unspecified; E78.5 Hyperlipidemia, unspecified; Z79.4 Long term (current) use of insulin; Z82.49 Family history of ischemic heart disease and other diseases of the circulatory system; Z89.612 Acquired absence of left leg above knee; Z83.3 Family history of diabetes mellitus; Z71.3 Dietary counseling and surveillance; Z68.31 Body mass index [BMI] 31.0-31.9, adult
CPT/HCPCS: 36415; 71045; 80048; 80061; 80305; 82962; 83735; 84443; 85379; 90686; 90732; 93005; 93306; 99285; J1200; J1650; J1815; J1940; J2270; J3475; J7050

== ENCOUNTER 2018-09-01 21:56 | Inpatient (IN) | payer MEDICAID ==
[~2018-09-01] VITALS: Ht 188 cm; Wt 104.3 kg
[~2018-09-01 21:56] MED LIST changes: -AMMO1SOL2 MC; +HYDR-4001 PO
[2018-09-02] MEDS ORDERED: FUROSEMIDE 40MG/4ML VIAL IV ONE (01:00)
[2018-09-02 01:22] LABS: HEMATOCRIT. 29.4 % (42.0-52.0); HEMOGLOBIN. 9.2 g/dL (14.0-18.0); MEAN CORPUSCULAR HEMOGLOBIN 26.3 pg (28.0-32.0); MEAN CORPUSCULAR VOLUME 83.6 fL (80.0-94.0); PLATELET 373 x1000/uL (130-400); RED BLOOD CELL COUNT 3.51 mill/uL (4.7-6.1); RED CELL DISTRIBUTION WIDTH 20.1 % (11.6-14.6)
[2018-09-02 01:29] LABS: CHLORIDE 106 mEq/L (98-107)
[2018-09-02 01:31] LABS: INR 1.3; PROTHROMBIN TIME 13.2 sec (9.6-11.0)
[2018-09-02 04:10] LABS: PLATELET ESTIMATE NORMAL
[2018-09-02 04:25] LABS: CLARITY URINE CLEAR (CLEAR); COLOR URINE YELLOW (YELLOW); KETONES URINE NEGATIVE (NEGATIVE); LEUKOCYTE ESTERASE URINE NEGATIVE (NEGATIVE); NITRITE URINE NEGATIVE (NEGATIVE); OCCULT BLOOD URINE 1+ (NEGATIVE); PH URINE 5.5 (4.5-8.0); PROTEIN URINE 3+ (NEGATIVE); SPECIFIC GRAVITY URINE 1.017 (1.005-1.030)
[2018-09-02] MEDS ORDERED: MORPHINE SULFATE 4 MG/ML CPJ (NOT FOR IM USE) IV STA (04:42)
[2018-09-02] MEDS ORDERED: ONDANSETRON HCL 4MG/2ML INJ IV STA (04:42)
[2018-09-02 10:00] VITALS: BP 155/91
[2018-09-02 11:00] VITALS: BP 155/96
[2018-09-02 12:00] VITALS: BP 151/82
[2018-09-02] MEDS ORDERED: FUROSEMIDE 40MG/4ML VIAL IVP SCH (12:00)
[2018-09-02] MEDS ORDERED: ONDANSETRON HCL 4MG/2ML INJ IV PRN (12:00)
[2018-09-02] MEDS ORDERED: DEXTROSE 50% WATER 50ML SYRINGE IV PRN (12:00)
[2018-09-02] MEDS: BLOOD SUGAR DIAGNOSTIC STRIP TEST SCH ×3 (12:40→21:06)
[2018-09-02] MEDS: LOSARTAN POTASSIUM 50 MG TABLET PO SCH (12:50)
[2018-09-02] MEDS: FERROUS SULFATE 325MG TABLET PO SCH ×2 (12:50→17:49)
[2018-09-02] MEDS: MORPHINE SULFATE 4 MG/ML CPJ (NOT FOR IM USE) IV PRN ×2 (12:52→21:15)
[2018-09-02] MEDS: INSULIN LISPRO 100 UNITS/ML SUBCUT SCH ×3 (13:18→21:00)
[2018-09-02] MEDS: CLONIDINE 0.2MG TABLET PO SCH ×2 (15:15→21:05)
[2018-09-02 16:00] VITALS: BP 158/90
[2018-09-02] MEDS: DOCUSATE SODIUM 100MG CAPSULE PO SCH (17:49)
[2018-09-02 20:00] VITALS: BP 179/99
[2018-09-02] MEDS: CARVEDILOL 6.25 MG TABLET PO SCH (21:05)
[2018-09-02] MEDS: ENOXAPARIN 30MG/0.3ML SYR SUBCUT SCH (21:05)
[2018-09-02] MEDS: FUROSEMIDE 100MG/10ML VIAL IV SCH (21:05)
[2018-09-03] VITALS: BP 150/84
[2018-09-03 04:00] VITALS: BP 160/91
[2018-09-03] MEDS: CLONIDINE 0.2MG TABLET PO SCH ×3 (06:14→22:00)
[2018-09-03 06:30] LABS: HEMATOCRIT. 28.4 % (42.0-52.0); HEMOGLOBIN. 9.1 g/dL (14.0-18.0); MEAN CORPUSCULAR HEMOGLOBIN 26.3 pg (28.0-32.0); MEAN CORPUSCULAR VOLUME 82.4 fL (80.0-94.0); PLATELET 401 x1000/uL (130-400); RED BLOOD CELL COUNT 3.45 mill/uL (4.7-6.1); RED CELL DISTRIBUTION WIDTH 20.4 % (11.6-14.6)
[2018-09-03 06:45] LABS: CHLORIDE 106 mEq/L (98-107)
[2018-09-03] MEDS: FUROSEMIDE 100MG/10ML VIAL IV SCH ×2 (06:49→17:11)
[2018-09-03] MEDS: BLOOD SUGAR DIAGNOSTIC STRIP TEST SCH ×4 (07:38→20:55)
[2018-09-03] MEDS: INSULIN LISPRO 100 UNITS/ML SUBCUT SCH ×4 (07:39→20:55)
[2018-09-03 08:25] VITALS: BP 166/76
[2018-09-03] MEDS: DOCUSATE SODIUM 100MG CAPSULE PO SCH ×2 (09:00→16:41)
[2018-09-03] MEDS: FERROUS SULFATE 325MG TABLET PO SCH ×3 (09:54→17:11)
[2018-09-03] MEDS: LOSARTAN POTASSIUM 50 MG TABLET PO SCH (09:54)
[2018-09-03] MEDS: CARVEDILOL 6.25 MG TABLET PO SCH ×2 (09:55→20:43)
[2018-09-03] MEDS: ENOXAPARIN 30MG/0.3ML SYR SUBCUT SCH ×2 (09:55→20:42)
[2018-09-03] MEDS: MORPHINE SULFATE 4 MG/ML CPJ (NOT FOR IM USE) IV PRN ×3 (10:00→20:42)
[2018-09-03] MEDS: NICOTINE 14MG PATCH TD SCH (10:28)
[2018-09-03 12:10] VITALS: BP 166/94
[2018-09-03] MEDS: TAMSULOSIN HCL 0.4MG SR CAPSULE PO SCH (14:11)
[2018-09-03 16:30] VITALS: BP 128/104
[2018-09-03 20:00] VITALS: BP 169/95
[2018-09-03] MEDS: HYDRALAZINE HCL 50MG TABLET PO SCH (20:43)
[2018-09-04] VITALS (8 sets, daily range): BP systolic 156–182; BP diastolic 85–102
[2018-09-04 00:34] LABS: NUCLEATED RED BLOOD CELLS 1 /100 WBC; PLATELET ESTIMATE NORMAL
[2018-09-04] MEDS: MORPHINE SULFATE 4 MG/ML CPJ (NOT FOR IM USE) IV PRN ×5 (01:10→22:15)
[2018-09-04] MEDS: CLONIDINE 0.2MG TABLET PO SCH ×3 (05:20→22:14)
[2018-09-04] MEDS: BLOOD SUGAR DIAGNOSTIC STRIP TEST SCH ×4 (06:04→21:00)
[2018-09-04] MEDS: FUROSEMIDE 100MG/10ML VIAL IV SCH ×2 (06:11→17:41)
[2018-09-04 07:12] LABS: CHLORIDE 102 mEq/L (98-107); HEMATOCRIT. 28.5 % (42.0-52.0); HEMOGLOBIN. 9.2 g/dL (14.0-18.0); MEAN CORPUSCULAR HEMOGLOBIN 26.3 pg (28.0-32.0); MEAN CORPUSCULAR VOLUME 81.7 fL (80.0-94.0); MEAN PLATELET VOLUME 10.3 fl (7.4-10.4); PLATELET 407 x1000/uL (130-400); RED BLOOD CELL COUNT 3.49 mill/uL (4.7-6.1); RED CELL DISTRIBUTION WIDTH 19.8 % (11.6-14.6)
[2018-09-04] MEDS: INSULIN LISPRO 100 UNITS/ML SUBCUT SCH ×4 (08:10→21:00)
[2018-09-04] MEDS: HYDRALAZINE HCL 50MG TABLET PO SCH ×2 (08:27→22:14)
[2018-09-04] MEDS: FERROUS SULFATE 325MG TABLET PO SCH ×3 (08:27→18:43)
[2018-09-04] MEDS: DOCUSATE SODIUM 100MG CAPSULE PO SCH ×2 (08:27→17:41)
[2018-09-04] MEDS: NICOTINE 14MG PATCH TD SCH (08:27)
[2018-09-04] MEDS: LOSARTAN POTASSIUM 50 MG TABLET PO SCH (08:27)
[2018-09-04] MEDS: ENOXAPARIN 30MG/0.3ML SYR SUBCUT SCH (08:28)
[2018-09-04] MEDS: CARVEDILOL 6.25 MG TABLET PO SCH ×2 (08:28→22:14)
[2018-09-04] MEDS: TAMSULOSIN HCL 0.4MG SR CAPSULE PO SCH (08:30)
[2018-09-04 10:27] LABS: PLATELET ESTIMATE INCREASED
[2018-09-05] VITALS: BP 185/99
[2018-09-05] MEDS: MORPHINE SULFATE 4 MG/ML CPJ (NOT FOR IM USE) IV PRN ×3 (02:18→12:01)
[2018-09-05 04:00] VITALS: BP 172/90
[2018-09-05 06:16] LABS: HEMATOCRIT. 30.1 % (42.0-52.0); HEMOGLOBIN. 9.8 g/dL (14.0-18.0); MEAN CORPUSCULAR HEMOGLOBIN 26.5 pg (28.0-32.0); MEAN CORPUSCULAR VOLUME 81.6 fL (80.0-94.0); MEAN PLATELET VOLUME 9.9 fl (7.4-10.4); PLATELET 421 x1000/uL (130-400); RED BLOOD CELL COUNT 3.68 mill/uL (4.7-6.1)
[2018-09-05] MEDS: CLONIDINE 0.2MG TABLET PO SCH ×2 (06:26→14:06)
[2018-09-05] MEDS: FUROSEMIDE 100MG/10ML VIAL IV SCH (06:26)
[2018-09-05 06:51] LABS: CHLORIDE 98 mEq/L (98-107)
[2018-09-05 08:00] VITALS: BP 176/99
[2018-09-05] MEDS: BLOOD SUGAR DIAGNOSTIC STRIP TEST SCH ×2 (08:09→11:42)
[2018-09-05] MEDS: INSULIN LISPRO 100 UNITS/ML SUBCUT SCH ×2 (08:10→11:42)
[2018-09-05] MEDS: LOSARTAN POTASSIUM 50 MG TABLET PO SCH (08:47)
[2018-09-05] MEDS: DOCUSATE SODIUM 100MG CAPSULE PO SCH (08:47)
[2018-09-05] MEDS: TAMSULOSIN HCL 0.4MG SR CAPSULE PO SCH (08:47)
[2018-09-05] MEDS: FERROUS SULFATE 325MG TABLET PO SCH ×2 (08:47→12:01)
[2018-09-05] MEDS: CARVEDILOL 6.25 MG TABLET PO SCH (08:48)
[2018-09-05] MEDS: HYDRALAZINE HCL 50MG TABLET PO SCH (08:48)
[2018-09-05] MEDS: NICOTINE 14MG PATCH TD SCH (08:48)
[2018-09-05] MEDS ORDERED: ENOXAPARIN 40MG/0.4ML SYR SUBCUT SCH (09:00)
[2018-09-05] MEDS ORDERED: POTASSIUM CHLORIDE 20MEQ TABLET SR PO NR (10:15)
[2018-09-05 12:00] VITALS: BP 170/93
[2018-09-05 16:00] VITALS: BP 152/91
[2018-09-05 16:51] VITALS: BP 152/91
[2018-09-05 17:29] LABS: PLATELET ESTIMATE SLIGHTLY INCREASED
== END 2018-09-05 18:04 | disposition home or self-care (01) | DRG 194 ==
LOC: ER 21:56 → 7WST 09-02 02:22 → EDBEDREQ 09-02 02:29 → EDBEDREQTM 09-02 02:29 → ENRESERV 09-02 07:39
PROVIDERS: ADMIT Internal Medicine; ATTEND Internal Medicine
DX: I11.0 Hypertensive heart disease with heart failure (principal); E43 Unspecified severe protein-calorie malnutrition; E11.51 Type 2 diabetes mellitus with diabetic peripheral angiopathy without gangrene; I50.23 Acute on chronic systolic (congestive) heart failure; J44.9 Chronic obstructive pulmonary disease, unspecified; E66.9 Obesity, unspecified; D64.9 Anemia, unspecified; E11.52 Type 2 diabetes mellitus with diabetic peripheral angiopathy with gangrene; E78.5 Hyperlipidemia, unspecified; F17.210 Nicotine dependence, cigarettes, uncomplicated; I42.9 Cardiomyopathy, unspecified; N40.0 Benign prostatic hyperplasia without lower urinary tract symptoms; N50.89 Other specified disorders of the male genital organs; Z86.73 Personal history of transient ischemic attack (TIA), and cerebral infarction without residual deficits; Z89.612 Acquired absence of left leg above knee; Z68.29 Body mass index [BMI] 29.0-29.9, adult; Z79.899 Other long term (current) drug therapy; Z91.013 Allergy to seafood; Z79.84 Long term (current) use of oral hypoglycemic drugs
CPT/HCPCS: 36415; 71045; 80048; 82962; 83880; 84484; 93005; 96374; 96375; 99285; A6261; J1650; J1815; J1940; J2270; J2405; A4315

== ENCOUNTER 2019-07-29 07:23 | Inpatient (IN) | payer MEDICAID ==
[~2019-07-29] VITALS: Ht 188 cm; Wt 122.9 kg
[~2019-07-29 07:23] MED LIST changes: +EZET10TA13 MT; -ZET10 MT
[2019-07-29] MEDS ORDERED: MORPHINE SULFATE 4 MG/ML CPJ (NOT FOR IM USE) IV ONE (08:15)
[2019-07-29 08:30] LABS: HEMATOCRIT. 32.2 % (42.0-52.0); HEMOGLOBIN. 10.4 g/dL (14.0-18.0); MEAN CORPUSCULAR HEMOGLOBIN 29.9 pg (28.0-32.0); MEAN CORPUSCULAR VOLUME 92.6 fL (80.0-94.0); MEAN PLATELET VOLUME 10.3 fl (7.4-10.4); PLATELET 308 x1000/uL (130-400); RED BLOOD CELL COUNT 3.48 mill/uL (4.7-6.1); RED CELL DISTRIBUTION WIDTH 18.2 % (11.6-14.6)
[2019-07-29 08:35] LABS: CHLORIDE 113 mEq/L (98-107)
[2019-07-29 08:37] LABS: INR 1.3; PARTIAL THROMBOPLASTIN TIME 31.9 sec (23.4-31.0)
[2019-07-29 08:51] LABS: NUCLEATED RED BLOOD CELLS 1 /100 WBC; PLATELET ESTIMATE NORMAL
[2019-07-29 09:59] LABS: CLARITY URINE CLEAR (CLEAR); COLOR URINE YELLOW (YELLOW); KETONES URINE NEGATIVE (NEGATIVE); LEUKOCYTE ESTERASE URINE NEGATIVE (NEGATIVE); NITRITE URINE NEGATIVE (NEGATIVE); OCCULT BLOOD URINE NEGATIVE (NEGATIVE); PROTEIN URINE 3+ (NEGATIVE); SPECIFIC GRAVITY URINE 1.017 (1.005-1.030)
[2019-07-29] MEDS ORDERED: AMLODIPINE 5MG TABLET PO ONE (11:00)
[2019-07-29] MEDS ORDERED: CLONIDINE 0.2MG TABLET PO ONE (11:00)
[2019-07-29] MEDS ORDERED: ONDANSETRON HCL 4MG/2ML INJ IV PRN (12:00)
[2019-07-29] MEDS ORDERED: ACETAMINOPHEN 325MG TABLET PO PRN (12:00)
[2019-07-29] MEDS ORDERED: IPRATROPIUM/ALBUTEROL 0.5-3(2.5)MG/3ML NEB HHN PRN (12:00)
[2019-07-29 12:18] LABS: PHOSPHORUS 4.5 mg/dL (2.5-4.9)
[2019-07-29 15:57] VITALS: BP 126/82
[2019-07-29 17:00] VITALS: BP 126/82
[2019-07-29] MEDS ORDERED: DEXTROSE 50% WATER 50ML SYRINGE IV PRN (17:30)
[2019-07-29] MEDS: FUROSEMIDE 40MG/4ML VIAL IV SCH (17:34)
[2019-07-29] MEDS: BLOOD SUGAR DIAGNOSTIC STRIP TEST SCH ×2 (17:39→21:58)
[2019-07-29] MEDS: INSULIN LISPRO 100 UNITS/ML SUBCUT SCH ×2 (17:40→22:06)
[2019-07-29 20:00] VITALS: BP 152/96
[2019-07-29] MEDS: HYDROCODONE/ACETAMINOPHEN 5/325MG TABLET PO PRN (20:47)
[2019-07-30] VITALS: BP 166/93
[2019-07-30] MEDS: HYDROCODONE/ACETAMINOPHEN 5/325MG TABLET PO PRN ×2 (02:42→11:09)
[2019-07-30 04:00] VITALS: BP 138/92
[2019-07-30] MEDS: BLOOD SUGAR DIAGNOSTIC STRIP TEST SCH ×4 (06:45→20:53)
[2019-07-30] MEDS: FUROSEMIDE 40MG/4ML VIAL IV SCH ×2 (06:47→16:19)
[2019-07-30 07:10] LABS: CHLORIDE 113 mEq/L (98-107)
[2019-07-30 07:21] LABS: PHOSPHORUS 4.3 mg/dL (2.5-4.9)
[2019-07-30 08:00] VITALS: BP 151/96
[2019-07-30] MEDS: INSULIN LISPRO 100 UNITS/ML SUBCUT SCH ×4 (08:10→20:58)
[2019-07-30 08:11] LABS: HEMATOCRIT. 29.3 % (42.0-52.0); HEMOGLOBIN. 9.3 g/dL (14.0-18.0); MEAN CORPUSCULAR HEMOGLOBIN 29.2 pg (28.0-32.0); MEAN CORPUSCULAR VOLUME 92.3 fL (80.0-94.0); MEAN PLATELET VOLUME 10.5 fl (7.4-10.4); PLATELET 290 x1000/uL (130-400); RED BLOOD CELL COUNT 3.17 mill/uL (4.7-6.1); RED CELL DISTRIBUTION WIDTH 17.6 % (11.6-14.6)
[2019-07-30 09:48] LABS: PLATELET ESTIMATE NORMAL
[2019-07-30 12:00] VITALS: BP 163/93
[2019-07-30] MEDS ORDERED: LIDOCAINE HCL/PF 1% 10 MG/ML 5ML VIAL IJ NR (14:00)
[2019-07-30 16:00] VITALS: BP 126/83
[2019-07-30] MEDS: MAGNESIUM GLUCONATE 500MG TABLET PO SCH (16:19)
[2019-07-30] MEDS: HYDROCODONE/APAP 7.5/325MG 1 TAB TABLET PO PRN ×2 (16:20→22:18)
[2019-07-30 20:00] VITALS: BP 159/97
[2019-07-30] MEDS: CARVEDILOL 3.125 MG TABLET PO SCH (20:52)
[2019-07-30] MEDS: AMLODIPINE 2.5MG TABLET PO SCH (20:53)
[2019-07-31 00:17] VITALS: BP 164/98
[2019-07-31 04:00] VITALS: BP 160/108
[2019-07-31 04:06] LABS: *CREATININE RANDOM URINE 30.9 mg/dL (Not Estab.); MICROALBUMIN RANDOM URINE 887.8 ug/mL (Not Estab.)
[2019-07-31] MEDS: CLONIDINE 0.1MG TABLET PO PRN ×3 (04:47→17:36)
[2019-07-31] MEDS: HYDROCODONE/APAP 7.5/325MG 1 TAB TABLET PO PRN ×2 (04:48→15:32)
[2019-07-31 06:00] VITALS: BP 140/89
[2019-07-31] MEDS: FUROSEMIDE 40MG/4ML VIAL IV SCH ×2 (06:16→17:36)
[2019-07-31 08:00] VITALS: BP 176/95
[2019-07-31] MEDS: INSULIN LISPRO 100 UNITS/ML SUBCUT SCH ×4 (08:00→21:00)
[2019-07-31] MEDS: BLOOD SUGAR DIAGNOSTIC STRIP TEST SCH ×4 (08:00→21:00)
[2019-07-31] MEDS: CARVEDILOL 3.125 MG TABLET PO SCH (09:18)
[2019-07-31] MEDS: MAGNESIUM GLUCONATE 500MG TABLET PO SCH (09:19)
[2019-07-31] MEDS: AMLODIPINE 2.5MG TABLET PO SCH (09:19)
[2019-07-31 10:21] LABS: HEMATOCRIT. 29.8 % (42.0-52.0); HEMOGLOBIN. 9.5 g/dL (14.0-18.0); MEAN CORPUSCULAR HEMOGLOBIN 29.4 pg (28.0-32.0); MEAN CORPUSCULAR VOLUME 91.9 fL (80.0-94.0); MEAN PLATELET VOLUME 10.7 fl (7.4-10.4); PLATELET 297 x1000/uL (130-400); RED BLOOD CELL COUNT 3.24 mill/uL (4.7-6.1); RED CELL DISTRIBUTION WIDTH 17.7 % (11.6-14.6)
[2019-07-31 11:00] LABS: PLATELET ESTIMATE NORMAL
[2019-07-31] MEDS ORDERED: REGADENOSON 0.4 MG/5 ML IV NR (11:00)
[2019-07-31] MEDS ORDERED: COR6 PO (15:54)
[2019-07-31] MEDS ORDERED: FURO40TA5 MT (15:54)
[2019-07-31] MEDS ORDERED: AMLO5TAB88 PO (15:54)
[2019-07-31 16:00] VITALS: BP 187/113
[2019-07-31] MEDS ORDERED: METOLAZONE 2.5MG TABLET PO ONE (16:30)
[2019-07-31] MEDS: METOLAZONE 2.5MG TABLET PO SCH (17:35)
[2019-07-31] MEDS: MORPHINE SULFATE 2 MG/ML CPJ (NOT FOR IM USE) IV PRN (17:36)
[2019-07-31] MEDS: SILVER SULFADIAZINE 1% CREAM 50GM TOP SCH (17:37)
[2019-07-31 20:00] VITALS: BP 153/82
[2019-07-31] MEDS: AMLODIPINE 5MG TABLET PO SCH (22:05)
[2019-07-31] MEDS: ATORVASTATIN CALCIUM 20MG TABLET PO SCH (22:05)
[2019-07-31] MEDS: CARVEDILOL 6.25 MG TABLET PO SCH (22:06)
[2019-08-01] VITALS: BP 179/98
[2019-08-01] MEDS: HYDROCODONE/ACETAMINOPHEN 10/325MG TABLET PO PRN ×2 (00:49→17:09)
[2019-08-01] MEDS: MORPHINE SULFATE 2 MG/ML CPJ (NOT FOR IM USE) IV PRN ×3 (01:41→13:52)
[2019-08-01 04:00] VITALS: BP 182/100
[2019-08-01] MEDS: FUROSEMIDE 40MG/4ML VIAL IV SCH ×2 (06:29→17:07)
[2019-08-01] MEDS: BLOOD SUGAR DIAGNOSTIC STRIP TEST SCH ×4 (06:49→21:00)
[2019-08-01 07:12] LABS: HEMATOCRIT. 29.9 % (42.0-52.0); HEMOGLOBIN. 9.8 g/dL (14.0-18.0); MEAN CORPUSCULAR HEMOGLOBIN 30.1 pg (28.0-32.0); MEAN CORPUSCULAR VOLUME 91.3 fL (80.0-94.0); MEAN PLATELET VOLUME 9.8 fl (7.4-10.4); PLATELET 316 x1000/uL (130-400); RED BLOOD CELL COUNT 3.28 mill/uL (4.7-6.1); RED CELL DISTRIBUTION WIDTH 17.5 % (11.6-14.6)
[2019-08-01 07:23] LABS: CHLORIDE 111 mEq/L (98-107)
[2019-08-01 07:48] LABS: PHOSPHORUS 3.9 mg/dL (2.5-4.9)
[2019-08-01 08:00] VITALS: BP 172/100
[2019-08-01] MEDS: INSULIN LISPRO 100 UNITS/ML SUBCUT SCH ×4 (08:10→21:00)
[2019-08-01] MEDS ORDERED: METOLAZONE 2.5MG TABLET PO SCH (09:00)
[2019-08-01] MEDS ORDERED: REGADENOSON 0.4 MG/5 ML IV ONE (09:52)
[2019-08-01 10:12] LABS: NUCLEATED RED BLOOD CELLS 2 /100 WBC; PLATELET ESTIMATE NORMAL
[2019-08-01] MEDS: METOLAZONE 2.5MG TABLET PO SCH (11:35)
[2019-08-01] MEDS: CARVEDILOL 6.25 MG TABLET PO SCH ×2 (11:35→20:46)
[2019-08-01] MEDS: MAGNESIUM GLUCONATE 500MG TABLET PO SCH (11:36)
[2019-08-01] MEDS: AMLODIPINE 5MG TABLET PO SCH ×2 (11:36→20:46)
[2019-08-01] MEDS: SILVER SULFADIAZINE 1% CREAM 50GM TOP SCH (11:36)
[2019-08-01 12:00] VITALS: BP 194/105
[2019-08-01] MEDS: CLONIDINE 0.1MG TABLET PO PRN (12:35)
[2019-08-01] MEDS: HYDRALAZINE HCL 25MG TABLET PO SCH ×2 (13:59→22:00)
[2019-08-01] MEDS ORDERED: HYDRALAZINE HCL 10MG TABLET PO SCH (14:00)
[2019-08-01 16:00] VITALS: BP 167/90
[2019-08-01 20:00] VITALS: BP 175/108
[2019-08-01] MEDS: ATORVASTATIN CALCIUM 20MG TABLET PO SCH (20:45)
[2019-08-01] MEDS ORDERED: MORPHINE SULFATE 2 MG/ML CPJ (NOT FOR IM USE) IV PRN (21:45)
== END 2019-08-01 23:20 | disposition left against medical advice (07) | DRG 197 ==
LOC: ER 07:33 → 7WST 11:15 → EDBEDREQTM 11:19 → EDBEDREQ 11:19 → ENRESERV 15:05
PROVIDERS: ADMIT Internal Medicine; ATTEND Internal Medicine
PROC: 0JBR0ZZ Excision of Left Foot Subcutaneous Tissue and Fascia, Open Approach (ICD-10-PCS; principal; 2019-07-30)
DX: E11.51 Type 2 diabetes mellitus with diabetic peripheral angiopathy without gangrene (principal); N17.0 Acute kidney failure with tubular necrosis; I50.23 Acute on chronic systolic (congestive) heart failure; E44.0 Moderate protein-calorie malnutrition; E11.22 Type 2 diabetes mellitus with diabetic chronic kidney disease; E11.42 Type 2 diabetes mellitus with diabetic polyneuropathy; E66.01 Morbid (severe) obesity due to excess calories; I42.0 Dilated cardiomyopathy; E11.621 Type 2 diabetes mellitus with foot ulcer; L97.919 Non-pressure chronic ulcer of unspecified part of right lower leg with unspecified severity; I13.0 Hypertensive heart and chronic kidney disease with heart failure and stage 1 through stage 4 chronic kidney disease, or unspecified chronic kidney disease; N18.3 Chronic kidney disease, stage 3 (moderate); D63.8 Anemia in other chronic diseases classified elsewhere; E11.622 Type 2 diabetes mellitus with other skin ulcer; E11.65 Type 2 diabetes mellitus with hyperglycemia; E78.5 Hyperlipidemia, unspecified; E83.42 Hypomagnesemia; F17.210 Nicotine dependence, cigarettes, uncomplicated; I25.10 Atherosclerotic heart disease of native coronary artery without angina pectoris; J44.9 Chronic obstructive pulmonary disease, unspecified; K40.90 Unilateral inguinal hernia, without obstruction or gangrene, not specified as recurrent; N50.89 Other specified disorders of the male genital organs; Z89.512 Acquired absence of left leg below knee; Z89.612 Acquired absence of left leg above knee
CPT/HCPCS: 36415; 71045; 74176; 76770; 76870; 78452; 80048; 80053; 80061; 81003; 82043; 82570; 82962; 83036; 83735; 83880; 83935; 84100; 84134; 84156; 84300; 84443; 84484; 85025; 93005; 93017; 93306; 93970; 93976; 96374; 99285; A9500; J1815; J1940; J2270; J2785; J3490